=== PATIENT | female | born 1945 | race Caucasian/White ===

== ENCOUNTER → 2017-11-25 08:43 | Outpatient (CLI) | payer MEDICARE, OTHER, SELFPAY ==
[2017-11-25 12:47] LABS: Absolute Lymphocyte Count 1.18 X10^3/ul (0.83-4.51); Basophil# 0.01 X10^3/uL; Basophil% 0.2 % (0-1); Eosinophil# 0.11 X10^3/uL; Eosinophils% 2.3 % (0-5); Hematocrit 34.3 % (37-47); Hemoglobin 11.5 g/dl (12.0-15.0); Lymphocyte # 1.18 X10^3/ul (4.0); Lymphocyte % 24.7 % (19-41); Mean Corp Hgb Conc 33.5 g/gl (32-36); Mean Corpuscular Hgb 30.2 pg (27.0-32.0); Mean Platelet Vol. 9.4 fl (6.2-12.0); Monocyte# 0.52 X10^3/uL; Monocyte% 10.9 % (0-10); Neutrophil # 2.95 X10^3/uL (2.7-7.7); Neutrophil % 61.9 % (47-70); POSITIVE COUNT NO; POSITIVE DIFFERENTIAL NO; POSITIVE MORPHOLOGY NO; Platelet Count 233 K/mm3 (150-450); RBC Distribution Width CV 12.5 % (11.6-14.6); RBC Distribution Width SD 40.9 fl (35.1-43.9); Red Blood Count 3.81 M/mm3 (4.2-5.4); White Blood Count 4.8 K/mm3 (4.4-11.0)
[2017-11-25 13:11] LABS: AST(SGOT) 22 U/L (15-37); Alanine Aminotransfer ALT/SGPT 22 U/L (13-56); Albumin, Serum 3.8 g/dL (3.2-5.0); Alkaline Phosphatase 66 U/L (45-117); Anion Gap 6 (5-15); BUN 18 mg/dL (7-18); BUN/Creat Ratio 16.4 RATIO (10-20); Chloride 103 mmol/L (98-107); EST Glomerular Filtration Rate 52 mL/min (>60); Est Glom Filt Rate - Afr Amer 63 mL/min (>60); Globulin 3.9 g/dL (2.2-4.2); Glucose 157 mg/dL (74-106); Potassium 3.9 mmol/L (3.5-5.1); Protein, Total 7.7 g/dL (6.4-8.2); Sodium Level 139 mmol/L (136-145); Thyroid Stim Hormone (TSH) 1.94 uIU/mL (0.358-3.74)
[2017-11-26 09:01] LABS: Vitamin D,25 Hydroxy 70.7 ng/mL (29.95-100.01)
== END ==
PROVIDERS: Family Provider Family Medicine Geriatric Medicine; PCP Family Medicine Geriatric Medicine; Visit Provider Family Medicine Geriatric Medicine
DX: E11.9 Type 2 diabetes mellitus without complications (principal); E55.9 Vitamin D deficiency, unspecified; I10 Essential (primary) hypertension
CPT/HCPCS: 36415; 80053; 82306; 84443; 85025

== ENCOUNTER → 2017-12-23 15:23 | Outpatient (CLI) | payer MEDICARE, OTHER, SELFPAY ==
--- NOTE | 2017-12-23 15:26 | BI_ITS ---
MAMMOGRAPHY - BILATERAL SCREENING 3-D KIMO SYNTHESIS REASON FOR EXAM: Female, 72 years old. Recent 5 pound weight loss. Right breast biopsy 1989. PERTINENT HISTORY: No significant family history. TECHNIQUE: Digital bilateral breast kimo (3D mammographic acquisition) in the CC and MLO projections. 2-D mediolateral oblique (MLO) and craniocaudad (CC) views of both breasts were obtained. CAD: Full Field Digital Mammography with Computer Added Detection was performed. COMPARISON: 12/17/2015 through 12/12/2013. FINDINGS: The breast composition is composed of scattered fibroglandular density. No significant asymmetric density, architecture distortion, abnormal microcalcification cluster, dominant mass, adenopathy, skin thickening or nipple retraction identified. Coarse benign-appearing calcifications. BI/SCREENING MAMM (CAD), BILAT IMPRESSION: No mammographic signs of malignancy. Routine yearly mammograms recommended. ASSESSMENT CATEGORY: BIRADS Category 2: Benign. A letter regarding these results will be sent to the patient by the facility within 30 days. FOLLOW UP RECOMMENDATION: Yearly follow up mammogram recommended. (A) Negative mammographic results should not deter biopsy as a palpable lesion should be followed on clinical grounds and biopsy performed if clinically persistent for 3 months or increasing size. Approximately 10% of breast cancers are not detected by mammography. A normal mammogram should not delay biopsy of a clinically suspicious abnormality. Electronically Signed: Maxwell Allen, at 22:26 EDT Tel , Service support ,
== END ==
PROVIDERS: Family Provider Family Medicine Geriatric Medicine; PCP Family Medicine Geriatric Medicine; Visit Provider Family Medicine Geriatric Medicine
DX: Z78.0 Asymptomatic menopausal state (principal); Z12.31 Encounter for screening mammogram for malignant neoplasm of breast
CPT/HCPCS: 77063; 77067; 77080

== ENCOUNTER → 2018-05-26 11:27 | Outpatient (CLI) | payer MEDICARE, OTHER, SELFPAY | PROVIDERS: Family Provider Family Medicine Geriatric Medicine; PCP Family Medicine Geriatric Medicine; Visit Provider Family Medicine Geriatric Medicine | DX: E11.9 Type 2 diabetes mellitus without complications (principal); E55.9 Vitamin D deficiency, unspecified; I10 Essential (primary) hypertension ==

== ENCOUNTER → 2018-06-02 14:27 | Outpatient (CLI) | payer MEDICARE, OTHER, SELFPAY ==
[2018-06-02 14:42] LABS: Absolute Lymphocyte Count 2.84 X10^3/ul (0.83-4.51); Absolute Neutrophil Count 8.7 X10^3/uL (2.0-7.7); Basophil# 0.03 X10^3/uL; Basophil% 0.2 % (0-1); Eosinophil# 0.24 X10^3/uL; Eosinophils% 1.9 % (0-5); Hematocrit 38.5 % (37-47); Hemoglobin 12.7 g/dl (12.0-15.0); Lymphocyte # 2.84 X10^3/ul (4.0); Lymphocyte % 22.3 % (19-41); Mean Corpuscular Hgb 29.7 pg (27.0-32.0); Mean Platelet Vol. 9.8 fl (6.2-12.0); Monocyte# 0.95 X10^3/uL; Monocyte% 7.4 % (0-10); Neutrophil # 8.67 X10^3/uL (2.7-7.7); Platelet Count 331 K/mm3 (150-450); RBC Distribution Width CV 12.5 % (11.6-14.6); RBC Distribution Width SD 40.3 fl (35.1-43.9); Red Blood Count 4.28 M/mm3 (4.2-5.4); White Blood Count 12.8 K/mm3 (4.4-11.0)
[2018-06-02 14:43] LABS: POSITIVE COUNT NO; POSITIVE DIFFERENTIAL NO; POSITIVE MORPHOLOGY NO
[2018-06-02 15:07] LABS: Anion Gap 10 (5-15); BUN 27 mg/dL (7-18); BUN/Creat Ratio 17.9 RATIO (10-20); Calcium,Total 9.6 mg/dL (8.5-10.1); Chloride 95 mmol/L (98-107); Creatinine, Serum 1.51 mg/dL (0.55-1.02); EST Glomerular Filtration Rate 36 mL/min (>60); Est Glom Filt Rate - Afr Amer 43 mL/min (>60); Glucose 178 mg/dL (74-106); Potassium 3.5 mmol/L (3.5-5.1); Sodium Level 132 mmol/L (136-145)
--- NOTE | 2018-06-02 16:18 | CT_ITS ---
STUDY: CT ABDOMEN AND PELVIS WITH CONTRAST REASON FOR EXAM: Female, 73 years old. Lower abdominal pain. RADIATION DOSAGE (If Supplied By Facility): CTDIvol = ( 9.75 ) mGy, DLP = ( 435.72 ) mGycm TECHNIQUE: Transaxial images were obtained from the dome of the diaphragm to the symphysis pubis with oral contrast. 75mL ml of Isovue 300 contrast was administered. Sagittal and coronal images were reconstructed. Individualized dose optimization techniques were used for this CT. COMPARISON: 07/23/2014. FINDINGS: There is a stable 5 mm subpleural nodule in the right lower lobe seen on series 2 image 2. There is a stable 3 mm nodule in the right lower lobe on series 2 image 4. Visualized heart is normal. The liver is unremarkable. The gallbladder is unremarkable. The spleen and pancreas are unremarkable. The adrenal glands are normal. The kidneys are unremarkable. No stones or hydronephrosis. The aorta is normal in caliber. 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 There is no free fluid, free air, or organized collection. There is extensive diverticulosis of the descending and sigmoid colon. There is moderate wall thickening of the sigmoid colon with pericolonic stranding. Findings are consistent with acute diverticulitis. There is no free air or organized collection. There is trace free fluid in the pelvis. There is no bowel obstruction. The appendix is normal. Urinary bladder is unremarkable. Normal abdominal wall. There are mild degenerative changes of the lumbar spine. CT/Abdomen/Pelvis WITH Contrast IMPRESSION: 1. Acute uncomplicated diverticulitis. 2. Stable pulmonary nodules in the right lower lobe. Electronically Signed: Ros Deleon MD at 16:57 EST Tel , Service support ,
--- OUTSIDE RECORDS SUMMARY | 2018-08-07 09:32 | XMS RPT_ITS ---
:1945 Author Organization [place] Care Team Providers Name Role Phone KARLA PYLE (DEEPA) Attending Unavailable RADHA, CANDIDO CHI Referring Unavailable NERIS NOYOLA Admitting Unavailable NERIS NOYOLA Attending Unavailable NERIS NOYOLA Referring Unavailable NERIS NOYOLA Admitting Unavailable NERIS NOYOLA Attending Unavailable CIRA BLAIR Admitting Unavailable JEWEL WILL Attending Unavailable CIRA BLAIR Referring Unavailable RADHA, CANDIDO CHI Primary Care Unavailable Dr. Clarke Barbour Admitting Unavailable Dr. Clarke Barbour Attending Unavailable Radha, Candido Chi Attending Unavailable Radha, Candido Chi Primary Care Unavailable Radha, Candido Chi Attending Unavailable Radha, Candido Chi Primary Care Unavailable Radha, Candido Chi Referring Unavailable Radha, Candido Chi Attending Unavailable Radha, Candido Chi Primary Care Unavailable Radha, Candido Chi Attending Unavailable Radha, Candido Chi Primary Care Unavailable PROBLEMS PROBLEMS DATE TYPE CONDITION / CODE ATTENDING STATUS SOURCE 06/02/2018 Unknown R10.9 - Unspecified Radha, Candido Chi Active [place] abdominal pain / Community R10.9(ICD-10) Hospital Repository 03/18/2018 Active Unspecified NERIS NOYOLA Active [place] hemorrhoids / [facility] Other K64.9(ICD-10) [place] Repository 03/29/2018 Active Other acute NERIS NOYOLA Active [place] postprocedural pain [facility] Other / G89.18(ICD-10) [place] Repository 03/24/2018 Active Encounter for NERIS NOYOLA Active [place] screening for [facility] Main malignant neoplasm [place] of colon / Repository Z12.11(ICD-10) 11/25/2017 Unknown E11.9 - Type 2 Radha, Candido Chi Active [place] diabetes mellitus [facility] without Hospital complications / Repository E11.9(ICD-10) 11/25/2017 Unknown E55.9 - Vitamin D Radha, Candido Chi Active [place] deficiency, Community unspecified / Hospital E55.9(ICD-10) Repository 11/25/2017 Unknown I10 - Essential Radha, Candido Chi Active [facility] (primary) Community hypertension / Hospital I10(ICD-10) Repository 07/22/2017 Admitting Chest pain, WILL, Active [facility] diagnosis unspecified / JEWEL ANABELLE Three R07.9(ICD-10) Repository PROCEDURES PROCEDURES No Procedure Records FoundRESULTS RESULTS ABDOMEN/PELVIS WITH Observed: 06/02/2018 Status: F Source: [place] CONTRAST 4:19 PM [facility] REPOSITORY [facility] Imaging Services [address] [place] [address] Abdomen/Pelvis WITH Contrast MR#: [id number] Acct: [id number] Name: MELISA GIMENEZ Rep #: [id number] : 1945 F 73 From: Ros Deleon MD PCP: Candido Garcia MD, Chi Status: REG CLI Study: Abdomen/Pelvis WITH Contrast Date of Exam: 06/02/18 Exam# [id number] Ordering Dr: Candido Garcia MD STUDY: CT ABDOMEN AND PELVIS WITH CONTRAST REASON FOR EXAM: Female, 73 years old. Lower abdominal pain. RADIATION DOSAGE (If Supplied By Facility): CTDIvol = ( 9.75 ) mGy, DLP = ( 435.72 ) mGycm TECHNIQUE: Transaxial images were obtained from the dome of the diaphragm to the symphysis pubis with oral contrast. 75mL ml of Isovue 300 contrast was administered. Sagittal and coronal images were reconstructed. Individualized dose optimization techniques were used for this CT. COMPARISON: 07/23/2014. FINDINGS: There is a stable 5 mm subpleural nodule in the right lower lobe seen on series 2 image 2. There is a stable 3 mm nodule in the right lower lobe on series 2 image 4. Visualized heart is normal. The liver is unremarkable. The gallbladder is unremarkable. The spleen and pancreas are unremarkable. The adrenal glands are normal. The kidneys are unremarkable. No stones or hydronephrosis. The aorta is normal in caliber. 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 There is no free fluid, free air, or organized collection. There is extensive diverticulosis of the descending and sigmoid colon. There is moderate wall thickening of the sigmoid colon with pericolonic stranding. Findings are consistent with acute diverticulitis. There is no free air or organized collection. There is trace free fluid in the pelvis. There is no bowel obstruction. The appendix is normal. Urinary bladder is unremarkable. Normal abdominal wall. There are mild degenerative changes of the lumbar spine. CT/Abdomen/Pelvis WITH Contrast IMPRESSION: 1. Acute uncomplicated diverticulitis. 2. Stable pulmonary nodules in the right lower lobe. Electronically Signed: Ros Deleon MD at 16:57 EST Tel , Service support , CC: Candido Garcia MD Arcade Game Technician: Signed CBC W/DIFF, AUTOMATED Collected: 06/02/2018 Status: F Source: [place] 2:29 PM [facility] REPOSITORY TYPE CODE TESTS RESULT OUT OF RANGE REFERENCE UNITS LAB L100.1000 4.4-11.0 K/mm3 High WBC 12.8 LAB L100.1200 4.2-5.4 M/mm3 Normal RBC 4.28 LAB L100.1300 12.0-15.0 g/dl Normal HGB 12.7 LAB L100.1400 37-47 % Normal HCT 38.5 LAB L100.1500 81-99 fL Normal MCV 90.0 LAB L100.1600 27.0-32.0 pg Normal MCH 29.7 LAB L100.1700 32-36 g/gl Normal MCHC 33.0 LAB L100.1810 11.6-14.6 % Normal RDW CV 12.5 LAB L100.1820 35.1-43.9 fl Normal RDW SD 40.3 LAB L100.1900 150-450 K/mm3 Normal PLT 331 LAB L100.2000 6.2-12.0 fl Normal MPV 9.8 LAB L100.2100 47-70 % Normal NEUT% 68.0 LAB L100.2200 19-41 % Normal LY% 22.3 LAB L100.2300 0-10 % Normal MONO% 7.4 LAB L100.2400 0-5 % Normal EO% 1.9 LAB L100.2500 0-1 % Normal BASO% 0.2 LAB L100.2550 0.0-0.9 % Normal IM GRAN % 0.200 Result Comment: IG% - Immature Granulocytes (promyelocytes, myelocytes and metamyelocytes) > 1% indicates that a LEFT SHIFT is Present. LAB L100.2620 2.0-7.7 X10 3/uL High Absolute Neut 8.7 LAB L100.2720 0.83-4.51 X10 3/ul Normal Absolute Lymph 2.84 Performed By: #### L100.0100 #### [facility] [place], [address] BASIC METABOLIC Collected: 06/02/2018 Status: F Source: [place] PROFILE (BMP) 2:29 PM [facility] REPOSITORY TYPE CODE TESTS RESULT OUT OF RANGE REFERENCE UNITS LAB L501.0100 74-106 mg/dL High GLU 178 Result Comment: Fasting Glucose result greater than or equal to 126 mg/dL suggests DIABETES MELLITUS per A.D.A. criteria. Please note revised GLUCOSE reference range effective 2017. LAB L501.1000 7-18 mg/dL High BUN 27 LAB L501.1100 0.55-1.02 mg/dL High CREAT,SERUM 1.51 Result Comment: The validity of the calculated GFR AND GFRAA in patients over 70 years has not been determined. Clinical correlation is essential. LAB L501.1110 >60 mL/min Low EST GFR 36 Result Comment: Non- GFR Calc LAB L501.1115 >60 mL/min Low EST GFR - AA 43 Result Comment: GFR Calc LAB L501.1300 10-20 RATIO Normal BUN/CRE 17.9 LAB L501.2200 8.5-10.1 mg/dL CA Normal 9.6 LAB L501.5300 136-145 mmol/L Low NA 132 LAB L501.5600 3.5-5.1 mmol/L K Normal 3.5 LAB L501.5900 98-107 mmol/L Low CL 95 LAB L501.6100 21.0-32.0 mmol/L Normal CO2 27.0 LAB L501.6200 5-15 Normal GAP 10 Performed By: #### L500.2500 #### [facility] [address] [address], [address] NURSING PROG Observed: 03/29/2018 Status: COMPLETED Source: [place] 1:00 PM [facility] REPOSITORY HNO ID: [id number] Author: Yajaira (Rn) CASSANDRA Medina Service: Nursing Author Type: Registered Nurse Type: Nursing Progress Note Filed: 03/29/2018 1:04 PM Note Text: Nursing Progress Note Patient Name: Melisa Gimenez Patient Location: LD-OR/LD-OR Daily Note: Discharge instructions given to pt only per pt request. Pt verbalized understanding. No questions or concerns were voiced at this time. Educational materials given to pt regarding antimicrobial resistance and surgical site infection. This note was completed by: Yajaira Medina RN BRIEF OP NOT Observed: 03/29/2018 Status: COMPLETED Source: [place] 11:48 AM [facility] REPOSITORY HNO ID: [id number] Author: Neris Noyola Service: (none) Author Type: Physician Type: Brief Op Note Filed: 03/29/2018 11:50 AM Note Text: BRIEF OPERATIVE NOTE SURGERY DATE: 03/29/2018 Incision/Procedure Start Time: 11:19 Incision Close/Procedure End Time: 11:38 Surgeon(s)/Proceduralist(s) and Medical Observer(s): Dennys welder first class Karla Pyle Procedures: Excision of hemorrhoids, anal fissurectomy Anesthesia: MAC Findings: posterior anal fissure, hemorrhoidal disease Estimated Blood Loss: < 2 mls Specimens: hemorrhoidal tissue Complications: None Preop Diagnosis: hemorrhoidal disease, perianal pain Postop Diagnosis: posterior anal fissure, hemorrhoidal disease SIGNATURE: Neris Noyola MD PATIENT NAME: Melisa Gimenez DATE: March 29, 2018 TIME: 11:48 AM PAGER/CONTACT #: [email or web address] POST Observed: 03/29/2018 Status: COMPLETED Source: [place] 11:02 AM [facility] REPOSITORY HNO ID: [id number] Author: Verna Isbell Service: (none) Author Type: Physician Type: Anesthesia PostOp Filed: 03/29/2018 11:59 AM Note Text: POST ANESTHESIA EVALUATION NOTE SERVICE DATE: 03/29/2018 SERVICE TIME: 11:58 AM : 1945 Vitals: 03/29/18 0947 03/29/18 1149 Temp: 36.4 ?C (97.6 ?F) 36.3 ?C (97.3 ?F) 03/29/18 0947 03/29/18 1149 BP: 159/72 108/52 03/29/18 0947 03/29/18 1149 Pulse: 73 77 03/29/18 0947 03/29/18 1149 Resp: 16 14 03/29/18 0947 03/29/18 1149 SpO2: 98% 96% Validated Vital Signs: Yes POST ANES STATUS: No apparent anesthetic complications. The patient is appropriately hydrated with stable respiratory and cardiovascular status. Patient has safe and adequate airway control. The patient has appropriate pain relief and no significant post operative nausea or vomiting. The patient has achieved baseline mental status. Intra-Operative Events: No Significant Anesthesia Events Further assessment by Anesthesia Service: None Other Remarks: SIGNATURE: Verna Isbell MD PATIENT NAME: Melisa Gimenez DATE: March 29, 2018 TIME: 11:58 AM PAGER/CONTACT #: ANES PREOP Observed: 03/29/2018 Status: COMPLETED Source: [place] 10:50 AM [facility] REPOSITORY O ID: [id number] Author: Verna Isbell Service: (none) Author Type: Physician Type: Anesthesia PreOp Filed: 03/29/2018 10:52 AM Note Text: ANESTHESIOLOGY PREOPERATIVE ASSESSMENT SERVICE DATE: 03/29/2018 : 1945 SERVICE TIME: 10:51 AM Surgeon(s): Neris Noyola Procedure(s) (LRB): HEMORRHOIDECTOMY EXTERNAL > 2 COLUMNS/GROUPS (N/A) Estimated body mass index is 24.33 kg/m? as calculated from the following: Height as of this encounter: 157.5 cm (5' 2). Weight as of this encounter: 60.3 kg (133 lb). MOST RECENT HEMATOCRIT AND POTASSIUM RESULTS: No results found for this basename: HCT,K ANES DOS/PREOP NOTE: Vitals: 03/29/18 0947 BP: 159/72 Pulse: 73 Resp: 16 Temp: 36.4 ?C (97.6 ?F) SpO2: 98% Weight: 60.3 kg (133 lb) Height: 157.5 cm (5' 2) ACTIVE PROBLEM LIST Hemorrhoid PAST MEDICAL HISTORY Diagnosis Date - Diabetes (HCC) - Hypercholesteremia PAST SURGICAL HISTORY Procedure Laterality Date - COLONOSCOP W/ OR W/O BRSH SPEC 03/24/2018 Colonoscopy - HEMORRHOID SURGERY HX 03/29/2018 - HYSTERECTOMY FAMILY HISTORY Problem Relation Age of Onset - Diabetes Father - Heart Father - Diabetes Brother Social History: Social History Substance Use Topics - Smoking status: Never Smoker - Smokeless tobacco: Never Used - Alcohol use No No current facility-administered medications on file prior to encounter. Current Outpatient Prescriptions on File Prior to Encounter: citalopram (CELEXA) 20 mg tablet Take 20 mg by mouth once daily. VITAMIN D 50,000 unit capsule Take 1 capsule by mouth once each week. HUMULIN 70/30 U-100 INSULIN 100 unit/mL (70-30) Inject 15 units sub-q 2 times daily lisinopril-hydrochlorothiazide (PRINZIDE,ZESTORETIC) 20-12.5 mg per tablet Take 2 tablets by mouth once daily. metFORMIN (GLUCOPHAGE) 1,000 mg tablet Take 1,000 mg by mouth twice daily. simvastatin (ZOCOR) 40 mg tablet Take 40 mg by mouth daily at bedtime. Current Facility-Administered Medications: lidocaine 10 mg/mL (1 %) 1-2 mg injection (XYLOCAINE) 0.1- 0.2 mL INTRADERMAL PRN Neris Noyola lactated ringers infusion 5-30 mL/hr INTRAVENOUS CONTINUOUS Neris Noyola Last Rate: 30 mL/hr at 03/29/18 1020 30 mL/hr at 03/29/18 1020 ceFAZolin iv piggyback 2 g in D5W (iso-osmotic) 100 mL (ANCEF) 2 g INTRAVENOUS Pre-Op Once Neris Noyola Last Rate: 200 mL/hr at 03/29/18 1024 2 g at 03/29/18 1024 Allergies: ALLERGIES Allergen Reactions - Sulfa (Sulfonamide * Intolerance REVIEW OF SYSTEMS: REVIEW OF SYSTEMS: As stated in Active Problem List/ Past Medical History ANESTHESIOLOGY REVIEW: Airway Assessment: MP 2; Neck ROM: Full ROM without neurologic symptoms; Airway Evaluation: No significant abnormalities Symptoms of Sleep Apnea: Hypertension and Age over 50 (73 year old) Intubation History: History of general anesthesia with no known difficulty Dentition: Multiple missing teeth Removable partial: lower ADDITIONAL PHYSICAL EXAM: Lungs: Lungs clear to auscultation. Good diaphragmatic excursion. Cardiac: normal S1 and S2; no rubs, no murmurs, and no gallops Additional Pertinent Findings: N/A ADVERSE ANESTHESIA EVENT: No history of adverse event FAMILY HIISTORY OF ANESTHESIA: No known issues BLOOD PRODUCTS: Not anticipated for this procedure OTHER MEDICAL PROBLEMS: None I have interviewed and examined the patient. I have reviewed the medical record and/or the pre-anesthesia evaluation, pertinent labs, and test results. Significant changes in the patient's condition since the History and Physical, not otherwise documented in primary service progress notes: No Anesthetic risks, benefits, alternatives, personnel and consent discussed: Yes ANES REVIEW: This contains information obtained greater than 48 hours prior to the Surgery/Procedure. See Day of Surgery Note SIGNATURE: Verna Isbell MD PATIENT NAME: Melisa Gimenez DATE: March 29, 2018 TIME: 10:50 AM PAGER/CONTACT #: OPERATIVE NO Observed: 03/29/2018 Status: COMPLETED Source: [place] 12:00 AM [facility] REPOSITORY [facility] ID: [id number] Author: Neris Noyola Service: (none) Author Type: Physician Type: Operative Report Filed: 03/30/2018 12:36 PM Note Text: [facility] - Operative Report - MELISA Connolly : 1945 AGE: 73. SEX: F PATIENT TYPE: A [facility] [place]: [facility] LOCATION: [facility] ATTENDING PHYSICIAN: Neris Noyola MD CSN NUMBER: [id number] DATE OF SURGERY/PROCEDURE: 03/29/2018 INCISION/PROCEDURE START TIME: 11:19 AM INCISION CLOSE/PROCEDURE END TIME: 11:38 AM PREOPERATIVE DIAGNOSIS: Painful external hemorrhoids. POSTOPERATIVE DIAGNOSIS: External and internal hemorrhoidal disease and posterior anal fissure. SURGEON: Neris Noyola MD POLICE SHIFT COMMANDER: mortgage loan assistant is Karla Pyle. She is a PA, who is assisting me as there are no surgery residents available. SURGERY/PROCEDURE: Hemorrhoidectomy with anal fissurectomy (44985), anal sphincter dilatation (07191) ANESTHESIA: MAC and local. LOCATION: [facility]. SPECIMEN: Hemorrhoidal tissue. INDICATIONS: Melisa Gimenez is a 73-year-old white female, who presents with painful external hemorrhoids and also recent colonoscopy revealed no other pathology. She, therefore, presents for evaluation with exploration under anesthesia and hemorrhoidectomy. She has been counseled as the risks of procedure including, but not limited to, infection, bleeding, injury to any bowel or bladder, injury to any blood vessels or nerves, nonresolution of symptoms, continue hemorrhoidal disease by nature of disease, wound infection, etc. The patient understands and agrees to proceed. DESCRIPTION OF PROCEDURE: After informed consent was given, the patient was brought to the operating room. Appropriate time-out protocol was done in the preprocedure area as well as in the operating room. The patient was then placed under anesthesia. She was then placed in a modified lithotomy position with appropriate padding to all decubitus areas. The perianal area was then prepped with a sterile surgical Betadine preparation, and the anal canal and rectum were then irrigated with the Betadine dilute solution. Appropriate sterile surgical drapes were placed. The skin and subcutaneous tissues all around the hemorrhoidal tissue was infiltrated with local anesthetic. The patient was noted to have large external hemorrhoids. Examination of the entire anal canal was done with an anal speculum after gentle dilatation of the sphincter muscles. The patient was also noted to have internal hemorrhoidal disease. Examination revealed a posterior anal fissure. The anal fissure tissue had senescent granulation tissue. This was sharply debrided. The edges of the anal fissure was also sharply excised back to normal tissue. Hemostasis was controlled by pressure. There was internal external hemorrhoidal bundle associated with this area. This hemorrhoidal tissue was also excised. The mucosa was then reapproximated over this entire area, radially, using a running locking 3-0 chromic suture. There was also a right lateral hemorrhoidal bundle. This also was incised and the mucosa was reapproximated using a running locking 3-0 chromic suture. The hemostasis had been controlled by electrocautery. The anal sphincter muscle was then gently dilated to four fingerbreadths. Thrombin Gelfoam with lidocaine ointment was then inserted into the anal canal for postoperative comfort. The patient was then brought to the recovery room in stable condition. COMPLICATIONS: None. ESTIMATED BLOOD LOSS: Less than 5 mL. Neris Noyola MD LW:[id number] HISTORY PHYSICAL Observed: 03/28/2018 Status: COMPLETED Source: [place] 6:52 PM [facility] REPOSITORY HNO ID: [id number] Author: Neris Noyola Service: (none) Author Type: Physician Type: HANDP Filed: 03/28/2018 6:53 PM Note Text: HISTORY AND PHYSICAL ? Melisa Gimenez 1945 ? REFERRING PHYSICIAN: Candido Garcia Chi, MD ? CHIEF COMPLAINT: Hemorrhoids ? HPI: The patient is a 73 year old female referred for hemorrhoids. Outside records were not available for review at time of patient appointment. Melisa notes that she has had hemorrhoids for many years but over the last couple of weeks these have become enlarged and increasingly painful. She does note a recent history of some straining with bowel movements. She states she has tried hydrocortisone preparation creams without relief. Has tried sitz baths with mild temporary improvement in symptoms. She denies any blood in stools or prolapsing hemorrhoids. She states her pain is all external and focal, has one larger hemorrhoid that is primary source of discomfort. Was evaluated by PCP, per patient was referred to see if she would be a candidate for banding procedure. The patient notes no history of upper GI complaints. Melisa has undergone prior endoscopy in 2005 and is overdue for screening colonoscopy. She denies a family history of colon issues. ? Patient's past medical history is significant for hypertension and diabetes mellitus. She follows with Dr. Garcia for her chronic medical conditions. She denies any history of cardiac or pulmonary issues. Denies any problems with sedation in the past. ? ? PAST?MEDICAL?HISTORY PAST MEDICAL HISTORY Diagnosis Date - Diabetes (HCC) ? - Hypercholesteremia ? ? ? PAST?SURGICAL?HISTORY PAST SURGICAL HISTORY Procedure Laterality Date - HYSTERECTOMY ? CURRENT?MEDICATIONS ? Current Outpatient Prescriptions: citalopram (CELEXA) 20 mg tablet Take 20 mg by mouth once daily. VITAMIN D 50,000 unit capsule Take 1 capsule by mouth once each week. HUMULIN 70/30 U-100 INSULIN 100 unit/mL (70-30) Inject 15 units sub-q 2 times daily lisinopril-hydrochlorothiazide (PRINZIDE,ZESTORETIC) 20-12.5 mg per tablet Take 2 tablets by mouth once daily. metFORMIN (GLUCOPHAGE) 1,000 mg tablet Take 1,000 mg by mouth twice daily. simvastatin (ZOCOR) 40 mg tablet Take 40 mg by mouth daily at bedtime. ? No current facility-administered medications for this visit. ? ALLERGIES: Sulfa (Sulfonamide Antibiotics) ? PERSONAL HISTORY: SOCIAL?HISTORY Social History Marital status: Spouse name: Years of education: Number of children: ? Social History Main Topics Smoking status: Never Smoker ? Smokeless tobacco: Never Used Alcohol use: No ? FAMILY HISTORY: FAMILY?HISTORY FAMILY HISTORY Problem Relation Age of Onset - Diabetes Father ? - Heart Father ? - Diabetes Brother ? ? ? REVIEW OF SYMPTOMS: The review of systems data was entered by the nurse and reviewed by me ? Nursing Notes: Sabiha Blessing KIM 03/14/2018 9:46 AM Signed REVIEW OF SYSTEMS: General: The patient denies fatigue, denies weight loss, denies weight gain, denies feeling hot, and denies feelings of cold. Eyes: The patient denies glaucoma, denies eye injury/surgery, wears glasses or contacts. Ear/Nose/Throat: The patient denies allergies, denies hayfever, denies ear infections, and denies bloody noses. Cardiovascular: The patient denies chest pain, denies heart disease, NOTES high blood pressure,denies cardiac stent, denies prior heart attack, denies irregular heart beat, denies high cholesterol, denies poor circulation, denies heart failure, other cardiac issues, denies claudication, denies cold feet, denies peripheral arterial stent. Respiratory: The patient denies tuberculosis, denies pneumonia, denies frequent cough, denies pulmonary embolism, denies shortness of breath, and denies coughing up blood. Gastrointestinal: The patient denies difficulty swallowing, denies acid reflux, denies ulcers, denies vomiting, denies jaundice/hepatitis, denies gallbladder problems, denies black or tarry stools, NOTES hemorrhoids, denies bleeding from rectum, denies diverticulitis, denies constipation, denies diarrhea, denies loss of stool control, and denies hernias. Kidney/Bladder: The patient denies kidney stones, denies urine infections, and denies bloody urine. Skin: The patient denies a history of skin cancer, denies bleeding/changing moles, and denies a history of skin rash. Neurologic: The patient denies a history of epilepsy/convulsions, denies headaches, denies head/spinal injuries, and denies stroke/TIA. Psychiatric: The patient denies psychiatric medications, denies depression, and denies voices, denies substance abuse. Endocrine: The patient denies thyroid disorders, NOTES diabetes, and denies hormonal problems. Hematologic: The patient denies a history of bruising, denies bleeding, and denies anemia, denies blood clots. Infections: The patient denies a history of measles and mumps, denies rheumatic fever, and denies sexually transmitted diseases. Musculoskeletal: The patient denies back pain/injury, denies back problems, denies sciatica, denies knee/foot trouble, denies arthritis, or denies gout. ? ? When was patient's last Mammogram screening? 2017 ? Last Colonoscopy: None ? Sabiha Funk LPN I have confirmed and edited as necessary, the PFSH and ROS obtained by others. ? PHYSICAL EXAMINATION: ? General: The patient is 73 year old female, well nourished, well hydrated in no acute distress. The patient is oriented to time, place, and person. ? VITALS: Blood pressure 132/58, pulse 70, weight 60.3 kg (133 lb). There is no height or weight on file to calculate BMI. ? HEENT: Normal cephalic, ataumatic, pupils are equally round, sclera are anicteric, mucous membranes are moist, oropharynx is clear. Neck has no masses, asymmetry or lymphadenopathy. ? Respiratory: Clear to auscultation and percussion. Normal respiratory excursion and pattern. ? Cardiac: Examination is regular rate and rhythm. Normal S1/S2 ? Abdominal exam: Soft, nontender, with no palpable masses. No hepatosplenomegaly. No palpable hernias. ? Rectal exam: +large, tender slightly firm but non-thrombosed external hemorrhoidal bundle at 1 o'clock and smaller external hemorrhoid at 6 o'clock. No fissure noted. RIDGE deferred ? Extremities: no clubbing, cyanosis or edema. No adenopathy. ? Other: ? LABORATORY VALUES: As Noted ? RADIOLOGIC STUDIES: As Noted ? ? Assessment IMPRESSION: symptomatic external hemorrhoid. Need for screening colonoscopy ? PLAN: Dr. Noyola also evaluated the patient and participated in development of the following plan. Dr. Noyola has recommended screening colonoscopy prior to any surgical intervention for hemorrhoids. We have also recommended attempting additional conservative treatments for the hemorrhoids prior to surgery. Discussed that the symptomatic external tag would not benefit from banding, as that is typically used for internal bleeding hemorrhoids. The patient wishes to have the large symptomatic superior external hemorrhoid excised, noting this has not improved with conservative measures. ? Dr. Noyola has offered hemorrhoidectomy of the larger hemorrhoidal bundle to be done in the OR at a separate setting from colonoscopy. We did discuss expectations for significant discomfort and swelling post-hemorrhoidectomy. Patient notes she still wishes to proceed. ? We discussed the risks and benefits of the planned procedures. I have informed the patient that complications can occur with both procedures. The patient had the opportunity to ask questions concerning the planned endoscopy and hemorrhoidectomy. My staff has also explained the procedures to the patient in understandable terms and has given the patient printed material concerning the procedure. The patient freely consents to both endoscopy and hemorrhoidectomy. ? I plan to use golytely bowel preparation in addition to 1 day of clear liquids prior to endoscopy ? Recommend clear liquid diet for 1 day prior to hemorrhoidectomy ? The patient has been instructed to contact her PCP for instructions regarding her diabetic medications which may require adjusment during bowel preparation and the days of the procedures ? I plan for monitored anesthetic care. ? Patient records/most recent HANDP requested from Dr. Garcia's office for review ? Diagnoses: (Z12.11) Encounter for screening for malignant neoplasm of colon (primary encounter diagnosis) (K64.4) External hemorrhoids ? Return to Clinic: The patient is instructed to follow-up with me 1 week post operatively. ? Patient verbalized understanding of all above and agreed with the plan ? Karla Pyle PA-C ? ? NURSING PROG Observed: 03/24/2018 Status: COMPLETED Source: [place] 11:38 AM [facility] REPOSITORY HNO ID: [id number] Author: Tavon Horn RN Service: Nursing Author Type: Registered Nurse Type: Nursing Progress Note Filed: 03/24/2018 11:39 AM Note Text: Patient did not experience a fall prior to discharge. Patient did not experience a burn prior to discharge. Tavon Horn RN NURSING PROG Observed: 03/24/2018 Status: COMPLETED Source: [place] 11:29 AM [facility] REPOSITORY HNO ID: [id number] Author: Tavon Horn RN Service: Nursing Author Type: Registered Nurse Type: Nursing Progress Note Filed: 03/24/2018 11:31 AM Note Text: Dressing to go home, reviewed instructions and results with her as she is more awake. All safety maintained. PT ED Observed: 03/24/2018 Status: COMPLETED Source: [place] 11:29 AM [facility] REPOSITORY HNO ID: [id number] Author: Tavon MaldonadoRn) CASSANDRA Horn Service: Nursing Author Type: Registered Nurse Type: Patient Education Filed: 03/24/2018 11:29 AM Note Text: POST OP LEARNING RESPONSE INSTRUCTION PROVIDED TO: Patient METHOD OF INSTRUCTION: Individual instruction Written instruction - handouts Verbal instruction PATIENT / FAMILY RESPONSE: Information received as demonstrated by interest and questions FOLLOW-UP PLAN: Patient instructed to call with any further issues SUPPLEMENTAL MATERIAL: None REFERRAL (RECOMMENDATION): None Electronically Signed By: Tavon Horn RN In Department: AMBULATORY SURGERY NURSING PROG Observed: 03/24/2018 Status: COMPLETED Source: [place] 11:10 AM [facility] REPOSITORY HNO ID: [id number] Author: Tavon MaldonadoRn) CASSANDRA Horn Service: Nursing Author Type: Registered Nurse Type: Nursing Progress Note Filed: 03/24/2018 11:11 AM Note Text: Dr noyola to speak to patient, starting to tolerating snack. I will go over instructions and results with her again before she leaves as she has no one to speak to as son is just a ride. NURSING PROG Observed: 03/24/2018 Status: COMPLETED Source: [place] 10:55 AM [facility] REPOSITORY HNO ID: [id number] Author: Tavon MaldonadoRn) Justina RN Service: Nursing Author Type: Registered Nurse Type: Nursing Progress Note Filed: 03/24/2018 10:56 AM Note Text: Resting left side, blood sugar 162. No complaints, all safety maintained. NURSING PROG Observed: 03/24/2018 Status: COMPLETED Source: [place] 10:38 AM [facility] REPOSITORY HNO ID: [id number] Author: Tavon Kan) CASSANDRA Horn Service: Nursing Author Type: Registered Nurse Type: Nursing Progress Note Filed: 03/24/2018 10:41 AM Note Text: Pt into Endo recovery room in satisfactory condition. Resting on left side. Pt. sleepy but arousable. Abdomen soft, no complaints, all safety maintained. Will continue to monitor. NURSING PROG Observed: 03/24/2018 Status: COMPLETED Source: [place] 10:36 AM [facility] REPOSITORY HNO ID: [id number] Author: Kylee Wallace RN Service: Nursing Author Type: Registered Nurse Type: Nursing Progress Note Filed: 03/24/2018 10:36 AM Note Text: Patient did not experience a fall within the Intraoperative area. Patient did not experience a burn within the Intraoperative area. Kylee Wallace RN NURSING PROG Observed: 03/24/2018 Status: COMPLETED Source: [place] 10:05 AM [facility] REPOSITORY HNO ID: [id number] Author: Tavon MaldonadoRn) CASSANDRA Horn Service: Nursing Author Type: Registered Nurse Type: Nursing Progress Note Filed: 03/24/2018 10:06 AM Note Text: [facility] PRE-OP NURSING HAND OFF NOTE SBAR Hand off given to Kylee Wallace RN. Hand off was communicated verbally and at the patient's bedside and all questions were answered. FALLS/LOPEZ Patient did not experience a fall within the Preoperative area. Patient did not experience a burn within the Preoperative area. Tavon Horn RN PT ED Observed: 03/24/2018 Status: COMPLETED Source: [place] 9:50 AM [facility] REPOSITORY HNO ID: [id number] Author: Tavon Kan) CASSANDRA Horn Service: Nursing Author Type: Registered Nurse Type: Patient Education Filed: 03/24/2018 9:50 AM Note Text: PRE OP LEARNING ASSESSMENT PROCEDURE/SURGERY: GI PROCEDURES: Colonoscopy READINESS TO LEARN COGNITIVE ABILITY: Alert and oriented MOTIVATION TO LEARN: Eager Interested FAMILY SUPPORT: None - Unavailable/disinterested PATIENT LEARNS BEST BY: Individual Instruction Written Instruction - Hand-outs Verbal Instruction FACTORS AFFECTING LEARNING: None PHYSICAL LIMITATIONS AFFECTING LEARNING: None Electronically Signed By: Tavon Horn RN In Department: AMBULATORY SURGERY HISTORY PHYSICAL Observed: 03/23/2018 Status: COMPLETED Source: [place] 7:10 PM [facility] REPOSITORY HNO ID: [id number] Author: Neris Noyola Service: (none) Author Type: Physician Type: HANDP Filed: 03/23/2018 7:11 PM Note Text: HISTORY AND PHYSICAL ? Melisa Gimenez 1945 ? REFERRING PHYSICIAN: Candido Garcia Chi, MD ? CHIEF COMPLAINT: Hemorrhoids ? HPI: The patient is a 73 year old female referred for hemorrhoids. Outside records were not available for review at time of patient appointment. Melisa notes that she has had hemorrhoids for many years but over the last couple of weeks these have become enlarged and increasingly painful. She does note a recent history of some straining with bowel movements. She states she has tried hydrocortisone preparation creams without relief. Has tried sitz baths with mild temporary improvement in symptoms. She denies any blood in stools or prolapsing hemorrhoids. She states her pain is all external and focal, has one larger hemorrhoid that is primary source of discomfort. Was evaluated by PCP, per patient was referred to see if she would be a candidate for banding procedure. The patient notes no history of upper GI complaints. Melisa has undergone prior endoscopy in 2005 and is overdue for screening colonoscopy. She denies a family history of colon issues. ? Patient's past medical history is significant for hypertension and diabetes mellitus. She follows with Dr. Garcia for her chronic medical conditions. She denies any history of cardiac or pulmonary issues. Denies any problems with sedation in the past. ? ? PAST?MEDICAL?HISTORY PAST MEDICAL HISTORY Diagnosis Date - Diabetes (HCC) ? - Hypercholesteremia ? ? ? PAST?SURGICAL?HISTORY PAST SURGICAL HISTORY Procedure Laterality Date - HYSTERECTOMY ? CURRENT?MEDICATIONS ? Current Outpatient Prescriptions: citalopram (CELEXA) 20 mg tablet Take 20 mg by mouth once daily. VITAMIN D 50,000 unit capsule Take 1 capsule by mouth once each week. HUMULIN 70/30 U-100 INSULIN 100 unit/mL (70-30) Inject 15 units sub-q 2 times daily lisinopril-hydrochlorothiazide (PRINZIDE,ZESTORETIC) 20-12.5 mg per tablet Take 2 tablets by mouth once daily. metFORMIN (GLUCOPHAGE) 1,000 mg tablet Take 1,000 mg by mouth twice daily. simvastatin (ZOCOR) 40 mg tablet Take 40 mg by mouth daily at bedtime. ? No current facility-administered medications for this visit. ? ALLERGIES: Sulfa (Sulfonamide Antibiotics) ? PERSONAL HISTORY: SOCIAL?HISTORY Social History Marital status: Spouse name: Years of education: Number of children: ? Social History Main Topics Smoking status: Never Smoker ? Smokeless tobacco: Never Used Alcohol use: No ? FAMILY HISTORY: FAMILY?HISTORY FAMILY HISTORY Problem Relation Age of Onset - Diabetes Father ? - Heart Father ? - Diabetes Brother ? ? ? REVIEW OF SYMPTOMS: The review of systems data was entered by the nurse and reviewed by me ? Nursing Notes: Sabiha Blessing KIM 03/14/2018 9:46 AM Signed REVIEW OF SYSTEMS: General: The patient denies fatigue, denies weight loss, denies weight gain, denies feeling hot, and denies feelings of cold. Eyes: The patient denies glaucoma, denies eye injury/surgery, wears glasses or contacts. Ear/Nose/Throat: The patient denies allergies, denies hayfever, denies ear infections, and denies bloody noses. Cardiovascular: The patient denies chest pain, denies heart disease, NOTES high blood pressure,denies cardiac stent, denies prior heart attack, denies irregular heart beat, denies high cholesterol, denies poor circulation, denies heart failure, other cardiac issues, denies claudication, denies cold feet, denies peripheral arterial stent. Respiratory: The patient denies tuberculosis, denies pneumonia, denies frequent cough, denies pulmonary embolism, denies shortness of breath, and denies coughing up blood. Gastrointestinal: The patient denies difficulty swallowing, denies acid reflux, denies ulcers, denies vomiting, denies jaundice/hepatitis, denies gallbladder problems, denies black or tarry stools, NOTES hemorrhoids, denies bleeding from rectum, denies diverticulitis, denies constipation, denies diarrhea, denies loss of stool control, and denies hernias. Kidney/Bladder: The patient denies kidney stones, denies urine infections, and denies bloody urine. Skin: The patient denies a history of skin cancer, denies bleeding/changing moles, and denies a history of skin rash. Neurologic: The patient denies a history of epilepsy/convulsions, denies headaches, denies head/spinal injuries, and denies stroke/TIA. Psychiatric: The patient denies psychiatric medications, denies depression, and denies voices, denies substance abuse. Endocrine: The patient denies thyroid disorders, NOTES diabetes, and denies hormonal problems. Hematologic: The patient denies a history of bruising, denies bleeding, and denies anemia, denies blood clots. Infections: The patient denies a history of measles and mumps, denies rheumatic fever, and denies sexually transmitted diseases. Musculoskeletal: The patient denies back pain/injury, denies back problems, denies sciatica, denies knee/foot trouble, denies arthritis, or denies gout. ? ? When was patient's last Mammogram screening? 2017 ? Last Colonoscopy: None ? Sabiha Funk LPN I have confirmed and edited as necessary, the PFSH and ROS obtained by others. ? PHYSICAL EXAMINATION: ? General: The patient is 73 year old female, well nourished, well hydrated in no acute distress. The patient is oriented to time, place, and person. ? VITALS: Blood pressure 132/58, pulse 70, weight 60.3 kg (133 lb). There is no height or weight on file to calculate BMI. ? HEENT: Normal cephalic, ataumatic, pupils are equally round, sclera are anicteric, mucous membranes are moist, oropharynx is clear. Neck has no masses, asymmetry or lymphadenopathy. ? Respiratory: Clear to auscultation and percussion. Normal respiratory excursion and pattern. ? Cardiac: Examination is regular rate and rhythm. Normal S1/S2 ? Abdominal exam: Soft, nontender, with no palpable masses. No hepatosplenomegaly. No palpable hernias. ? Rectal exam: +large, tender slightly firm but non-thrombosed external hemorrhoidal bundle at 1 o'clock and smaller external hemorrhoid at 6 o'clock. No fissure noted. RIDGE deferred ? Extremities: no clubbing, cyanosis or edema. No adenopathy. ? Other: ? LABORATORY VALUES: As Noted ? RADIOLOGIC STUDIES: As Noted ? ? Assessment IMPRESSION: symptomatic external hemorrhoid. Need for screening colonoscopy ? PLAN: Dr. Noyola also evaluated the patient and participated in development of the following plan. Dr. Noyola has recommended screening colonoscopy prior to any surgical intervention for hemorrhoids. We have also recommended attempting additional conservative treatments for the hemorrhoids prior to surgery. Discussed that the symptomatic external tag would not benefit from banding, as that is typically used for internal bleeding hemorrhoids. The patient wishes to have the large symptomatic superior external hemorrhoid excised, noting this has not improved with conservative measures. ? Dr. Noyola has offered hemorrhoidectomy of the larger hemorrhoidal bundle to be done in the OR at a separate setting from colonoscopy. We did discuss expectations for significant discomfort and swelling post-hemorrhoidectomy. Patient notes she still wishes to proceed. ? We discussed the risks and benefits of the planned procedures. I have informed the patient that complications can occur with both procedures. The patient had the opportunity to ask questions concerning the planned endoscopy and hemorrhoidectomy. My staff has also explained the procedures to the patient in understandable terms and has given the patient printed material concerning the procedure. The patient freely consents to both endoscopy and hemorrhoidectomy. ? I plan to use golytely bowel preparation in addition to 1 day of clear liquids prior to endoscopy ? Recommend clear liquid diet for 1 day prior to hemorrhoidectomy ? The patient has been instructed to contact her PCP for instructions regarding her diabetic medications which may require adjusment during bowel preparation and the days of the procedures ? I plan for monitored anesthetic care. ? Patient records/most recent HANDP requested from Dr. Garcia's office for review ? Diagnoses: (Z12.11) Encounter for screening for malignant neoplasm of colon (primary encounter diagnosis) (K64.4) External hemorrhoids ? My findings have been communicated to Dr. Garcia via shared medical record. This note will be forwarded to Dr. Candido Garcia MD. Return to Clinic: The patient is instructed to follow-up with me 1 week post operatively. ? Patient verbalized understanding of all above and agreed with the plan ? Karla Pyle PA-C ? ? HOSP Observed: 03/18/2018 Status: COMPLETED Source: [place] 12:00 AM [facility] REPOSITORY Patient:Melisa Gimenez MRN: <[id number]> Height:5' 2(1.575 m) Weight:133 lb (60.328 kg) Outpatient Medications as of 03/29/18: citalopram (CELEXA) 20 mg tablet VITAMIN D 50,000 unit capsule HUMULIN 70/30 U-100 INSULIN 100 unit/mL (70-30) lisinopril-hydrochlorothiazide (PRINZIDE,ZESTORETIC) 20-12.5 mg per tablet metFORMIN (GLUCOPHAGE) 1,000 mg tablet simvastatin (ZOCOR) 40 mg tablet Admission/Clinic Administered Medications as of 03/29/18: lidocaine 10 mg/mL (1 %) 1-2 mg injection (XYLOCAINE) lactated ringers infusion Problem List: Hemorrhoid [K64.9] Allergies: Sulfa (Sulfonamide Antibiotics) Date Verified: 03/29/18 Lab Values No results within the last 30 days for the following basenames: K,HCT Progress Notes ([facility]): Kumarrichardson Mcclain 03/14/2018 1:00 PM Signed 03-24-2018 Colon ASC, 03-29-2018 Hemorrhoidectomy [place] Kumar Mcclain Progress Notes ([facility]): Sabiha Funk LPN 03/14/2018 9:46 AM Signed REVIEW OF SYSTEMS: General: The patient denies fatigue, denies weight loss, denies weight gain, denies feeling hot, and denies feelings of cold. Eyes: The patient denies glaucoma, denies eye injury/surgery, wears glasses or contacts. Ear/Nose/Throat: The patient denies allergies, denies hayfever, denies ear infections, and denies bloody noses. Cardiovascular: The patient denies chest pain, denies heart disease, NOTES high blood pressure,denies cardiac stent, denies prior heart attack, denies irregular heart beat, denies high cholesterol, denies poor circulation, denies heart failure, other cardiac issues, denies claudication, denies cold feet, denies peripheral arterial stent. Respiratory: The patient denies tuberculosis, denies pneumonia, denies frequent cough, denies pulmonary embolism, denies shortness of breath, and denies coughing up blood. Gastrointestinal: The patient denies difficulty swallowing, denies acid reflux, denies ulcers, denies vomiting, denies jaundice/hepatitis, denies gallbladder problems, denies black or tarry stools, NOTES hemorrhoids, denies bleeding from rectum, denies diverticulitis, denies constipation, denies diarrhea, denies loss of stool control, and denies hernias. Kidney/Bladder: The patient denies kidney stones, denies urine infections, and denies bloody urine. Skin: The patient denies a history of skin cancer, denies bleeding/changing moles, and denies a history of skin rash. Neurologic: The patient denies a history of epilepsy/convulsions, denies headaches, denies head/spinal injuries, and denies stroke/TIA. Psychiatric: The patient denies psychiatric medications, denies depression, and denies voices, denies substance abuse. Endocrine: The patient denies thyroid disorders, NOTES diabetes, and denies hormonal problems. Hematologic: The patient denies a history of bruising, denies bleeding, and denies anemia, denies blood clots. Infections: The patient denies a history of measles and mumps, denies rheumatic fever, and denies sexually transmitted diseases. Musculoskeletal: The patient denies back pain/injury, denies back problems, denies sciatica, denies knee/foot trouble, denies arthritis, or denies gout. When was patient's last Mammogram screening? 2017 Last Colonoscopy: None Sabiha Pyle PA-C 03/17/2018 4:41 PM Signed HISTORY AND PHYSICAL Melisa Anthonyer 1945 REFERRING PHYSICIAN: Candido Garcia Chi, MD CHIEF COMPLAINT: Hemorrhoids HPI: The patient is a 73 year old female referred for hemorrhoids. Outside records were not available for review at time of patient appointment. Melisa notes that she has had hemorrhoids for many years but over the last couple of weeks these have become enlarged and increasingly painful. She does note a recent history of some straining with bowel movements. She states she has tried hydrocortisone preparation creams without relief. Has tried sitz baths with mild temporary improvement in symptoms. She denies any blood in stools or prolapsing hemorrhoids. She states her pain is all external and focal, has one larger hemorrhoid that is primary source of discomfort. Was evaluated by PCP, per patient was referred to see if she would be a candidate for banding procedure. The patient notes no history of upper GI complaints. Melisa has undergone prior endoscopy in 2005 and is overdue for screening colonoscopy. She denies a family history of colon issues. Patient's past medical history is significant for hypertension and diabetes mellitus. She follows with Dr. Garcia for her chronic medical conditions. She denies any history of cardiac or pulmonary issues. Denies any problems with sedation in the past. PAST MEDICAL HISTORY Diagnosis Date - Diabetes (HCC) - Hypercholesteremia PAST SURGICAL HISTORY Procedure Laterality Date - HYSTERECTOMY Current Outpatient Prescriptions: citalopram (CELEXA) 20 mg tablet Take 20 mg by mouth once daily. VITAMIN D 50,000 unit capsule Take 1 capsule by mouth once each week. HUMULIN 70/30 U-100 INSULIN 100 unit/mL (70-30) Inject 15 units sub-q 2 times daily lisinopril-hydrochlorothiazide (PRINZIDE,ZESTORETIC) 20-12.5 mg per tablet Take 2 tablets by mouth once daily. metFORMIN (GLUCOPHAGE) 1,000 mg tablet Take 1,000 mg by mouth twice daily. simvastatin (ZOCOR) 40 mg tablet Take 40 mg by mouth daily at bedtime. No current facility-administered medications for this visit. ALLERGIES: Sulfa (Sulfonamide Antibiotics) PERSONAL HISTORY: Social History Marital status: Spouse name: Years of education: Number of children: Social History Main Topics Smoking status: Never Smoker Smokeless tobacco: Never Used Alcohol use: No FAMILY HISTORY: FAMILY HISTORY Problem Relation Age of Onset - Diabetes Father - Heart Father - Diabetes Brother REVIEW OF SYMPTOMS: The review of systems data was entered by the nurse and reviewed by me Nursing Notes: Sabiha Funk LPN 03/14/2018 9:46 AM Signed REVIEW OF SYSTEMS: General: The patient denies fatigue, denies weight loss, denies weight gain, denies feeling hot, and denies feelings of cold. Eyes: The patient denies glaucoma, denies eye injury/surgery, wears glasses or contacts. Ear/Nose/Throat: The patient denies allergies, denies hayfever, denies ear infections, and denies bloody noses. Cardiovascular: The patient denies chest pain, denies heart disease, NOTES high blood pressure,denies cardiac stent, denies prior heart attack, denies irregular heart beat, denies high cholesterol, denies poor circulation, denies heart failure, other cardiac issues, denies claudication, denies cold feet, denies peripheral arterial stent. Respiratory: The patient denies tuberculosis, denies pneumonia, denies frequent cough, denies pulmonary embolism, denies shortness of breath, and denies coughing up blood. Gastrointestinal: The patient denies difficulty swallowing, denies acid reflux, denies ulcers, denies vomiting, denies jaundice/hepatitis, denies gallbladder problems, denies black or tarry stools, NOTES hemorrhoids, denies bleeding from rectum, denies diverticulitis, denies constipation, denies diarrhea, denies loss of stool control, and denies hernias. Kidney/Bladder: The patient denies kidney stones, denies urine infections, and denies bloody urine. Skin: The patient denies a history of skin cancer, denies bleeding/changing moles, and denies a history of skin rash. Neurologic: The patient denies a history of epilepsy/convulsions, denies headaches, denies head/spinal injuries, and denies stroke/TIA. Psychiatric: The patient denies psychiatric medications, denies depression, and denies voices, denies substance abuse. Endocrine: The patient denies thyroid disorders, NOTES diabetes, and denies hormonal problems. Hematologic: The patient denies a history of bruising, denies bleeding, and denies anemia, denies blood clots. Infections: The patient denies a history of measles and mumps, denies rheumatic fever, and denies sexually transmitted diseases. Musculoskeletal: The patient denies back pain/injury, denies back problems, denies sciatica, denies knee/foot trouble, denies arthritis, or denies gout. When was patient's last Mammogram screening? 2017 Last Colonoscopy: None Sabiha Funk LPN I have confirmed and edited as necessary, the PFSH and ROS obtained by others. PHYSICAL EXAMINATION: General: The patient is 73 year old female, well nourished, well hydrated in no acute distress. The patient is oriented to time, place, and person. VITALS: Blood pressure 132/58, pulse 70, weight 60.3 kg (133 lb). There is no height or weight on file to calculate BMI. HEENT: Normal cephalic, ataumatic, pupils are equally round, sclera are anicteric, mucous membranes are moist, oropharynx is clear. Neck has no masses, asymmetry or lymphadenopathy. Respiratory: Clear to auscultation and percussion. Normal respiratory excursion and pattern. Cardiac: Examination is regular rate and rhythm. Normal S1/S2 Abdominal exam: Soft, nontender, with no palpable masses. No hepatosplenomegaly. No palpable hernias. Rectal exam: +large, tender slightly firm but non-thrombosed external hemorrhoidal bundle at 1 o'clock and smaller external hemorrhoid at 6 o'clock. No fissure noted. RIDGE deferred Extremities: no clubbing, cyanosis or edema. No adenopathy. Other: LABORATORY VALUES: As Noted RADIOLOGIC STUDIES: As Noted Assessment IMPRESSION: symptomatic external hemorrhoid. Need for screening colonoscopy PLAN: Dr. Noyola also evaluated the patient and participated in development of the following plan. Dr. Noyola has recommended screening colonoscopy prior to any surgical intervention for hemorrhoids. We have also recommended attempting additional conservative treatments for the hemorrhoids prior to surgery. Discussed that the symptomatic external tag would not benefit from banding, as that is typically used for internal bleeding hemorrhoids. The patient wishes to have the large symptomatic superior external hemorrhoid excised, noting this has not improved with conservative measures. Dr. Noyola has offered hemorrhoidectomy of the larger hemorrhoidal bundle to be done in the OR at a separate setting from colonoscopy. We did discuss expectations for significant discomfort and swelling post-hemorrhoidectomy. Patient notes she still wishes to proceed. We discussed the risks and benefits of the planned procedures. I have informed the patient that complications can occur with both procedures. The patient had the opportunity to ask questions concerning the planned endoscopy and hemorrhoidectomy. My staff has also explained the procedures to the patient in understandable terms and has given the patient printed material concerning the procedure. The patient freely consents to both endoscopy and hemorrhoidectomy. I plan to use golytely bowel preparation in addition to 1 day of clear liquids prior to endoscopy Recommend clear liquid diet for 1 day prior to hemorrhoidectomy The patient has been instructed to contact her PCP for instructions regarding her diabetic medications which may require adjusment during bowel preparation and the days of the procedures I plan for monitored anesthetic care. Patient records/most recent HANDP requested from Dr. Garcia's office for review Diagnoses: (Z12.11) Encounter for screening for malignant neoplasm of colon (primary encounter diagnosis) (K64.4) External hemorrhoids My findings have been communicated to Dr. Garcia via shared medical record. This note will be forwarded to Dr. Candido Garcia MD. Return to Clinic: The patient is instructed to follow-up with me 1 week post operatively. Patient verbalized understanding of all above and agreed with the plan ERIC Lake PA-C 03/14/2018 10:42 AM Signed Plan for colonoscopy with Dr. Noyola. Please contact Dr. Garcia for instructions regarding your diabetic medications for the bowel prep and procedure days. You may take your blood pressure medication with a small sip of water Recommend sitz baths, topical dibucaine ointment (available over the counter) for hemorrhoids. Recommend starting a daily fiber supplement and plenty of fluids. Plan for hemorrhoidectomy if symptoms do not resolve with conservative measures PROGRESS Observed: 03/14/2018 Status: COMPLETED Source: [place] 10:30 AM [facility] [place] REPOSITORY [facility] ID: [id number] Author: Karla Pyle ([place]) Service: (none) Author Type: Physician Medical Observer Type: Progress Notes Filed: 03/17/2018 4:41 PM Note Text: HISTORY AND PHYSICAL Melisa Gimenez 1945 REFERRING PHYSICIAN: Candido Garcia Chi, MD CHIEF COMPLAINT: Hemorrhoids HPI: The patient is a 73 year old female referred for hemorrhoids. Outside records were not available for review at time of patient appointment. Melisa notes that she has had hemorrhoids for many years but over the last couple of weeks these have become enlarged and increasingly painful. She does note a recent history of some straining with bowel movements. She states she has tried hydrocortisone preparation creams without relief. Has tried sitz baths with mild temporary improvement in symptoms. She denies any blood in stools or prolapsing hemorrhoids. She states her pain is all external and focal, has one larger hemorrhoid that is primary source of discomfort. Was evaluated by PCP, per patient was referred to see if she would be a candidate for banding procedure. The patient notes no history of upper GI complaints. Melisa has undergone prior endoscopy in 2005 and is overdue for screening colonoscopy. She denies a family history of colon issues. Patient's past medical history is significant for hypertension and diabetes mellitus. She follows with Dr. Garcia for her chronic medical conditions. She denies any history of cardiac or pulmonary issues. Denies any problems with sedation in the past. PAST MEDICAL HISTORY Diagnosis Date - Diabetes (HCC) - Hypercholesteremia PAST SURGICAL HISTORY Procedure Laterality Date - HYSTERECTOMY Current Outpatient Prescriptions: citalopram (CELEXA) 20 mg tablet Take 20 mg by mouth once daily. VITAMIN D 50,000 unit capsule Take 1 capsule by mouth once each week. HUMULIN 70/30 U-100 INSULIN 100 unit/mL (70-30) Inject 15 units sub-q 2 times daily lisinopril-hydrochlorothiazide (PRINZIDE,ZESTORETIC) 20-12.5 mg per tablet Take 2 tablets by mouth once daily. metFORMIN (GLUCOPHAGE) 1,000 mg tablet Take 1,000 mg by mouth twice daily. simvastatin (ZOCOR) 40 mg tablet Take 40 mg by mouth daily at bedtime. No current facility-administered medications for this visit. ALLERGIES: Sulfa (Sulfonamide Antibiotics) PERSONAL HISTORY: Social History Marital status: Spouse name: Years of education: Number of children: Social History Main Topics Smoking status: Never Smoker Smokeless tobacco: Never Used Alcohol use: No FAMILY HISTORY: FAMILY HISTORY Problem Relation Age of Onset - Diabetes Father - Heart Father - Diabetes Brother REVIEW OF SYMPTOMS: The review of systems data was entered by the nurse and reviewed by nd Nursing Notes: Sabiha Funk LPN 03/14/2018 9:46 AM Signed REVIEW OF SYSTEMS: General: The patient denies fatigue, denies weight loss, denies weight gain, denies feeling hot, and denies feelings of cold. Eyes: The patient denies glaucoma, denies eye injury/surgery, wears glasses or contacts. Ear/Nose/Throat: The patient denies allergies, denies hayfever, denies ear infections, and denies bloody noses. Cardiovascular: The patient denies chest pain, denies heart disease, NOTES high blood pressure,denies cardiac stent, denies prior heart attack, denies irregular heart beat, denies high cholesterol, denies poor circulation, denies heart failure, other cardiac issues, denies claudication, denies cold feet, denies peripheral arterial stent. Respiratory: The patient denies tuberculosis, denies pneumonia, denies frequent cough, denies pulmonary embolism, denies shortness of breath, and denies coughing up blood. Gastrointestinal: The patient denies difficulty swallowing, denies acid reflux, denies ulcers, denies vomiting, denies jaundice/hepatitis, denies gallbladder problems, denies black or tarry stools, NOTES hemorrhoids, denies bleeding from rectum, denies diverticulitis, denies constipation, denies diarrhea, denies loss of stool control, and denies hernias. Kidney/Bladder: The patient denies kidney stones, denies urine infections, and denies bloody urine. Skin: The patient denies a history of skin cancer, denies bleeding/changing moles, and denies a history of skin rash. Neurologic: The patient denies a history of epilepsy/convulsions, denies headaches, denies head/spinal injuries, and denies stroke/TIA. Psychiatric: The patient denies psychiatric medications, denies depression, and denies voices, denies substance abuse. Endocrine: The patient denies thyroid disorders, NOTES diabetes, and denies hormonal problems. Hematologic: The patient denies a history of bruising, denies bleeding, and denies anemia, denies blood clots. Infections: The patient denies a history of measles and mumps, denies rheumatic fever, and denies sexually transmitted diseases. Musculoskeletal: The patient denies back pain/injury, denies back problems, denies sciatica, denies knee/foot trouble, denies arthritis, or denies gout. When was patient's last Mammogram screening? 2017 Last Colonoscopy: None Sabiha Funk LPN I have confirmed and edited as necessary, the PFSH and ROS obtained by others. PHYSICAL EXAMINATION: General: The patient is 73 year old female, well nourished, well hydrated in no acute distress. The patient is oriented to time, place, and person. VITALS: Blood pressure 132/58, pulse 70, weight 60.3 kg (133 lb). There is no height or weight on file to calculate BMI. HEENT: Normal cephalic, ataumatic, pupils are equally round, sclera are anicteric, mucous membranes are moist, oropharynx is clear. Neck has no masses, asymmetry or lymphadenopathy. Respiratory: Clear to auscultation and percussion. Normal respiratory excursion and pattern. Cardiac: Examination is regular rate and rhythm. Normal S1/S2 Abdominal exam: Soft, nontender, with no palpable masses. No hepatosplenomegaly. No palpable hernias. Rectal exam: +large, tender slightly firm but non-thrombosed external hemorrhoidal bundle at 1 o'clock and smaller external hemorrhoid at 6 o'clock. No fissure noted. RIDGE deferred Extremities: no clubbing, cyanosis or edema. No adenopathy. Other: LABORATORY VALUES: As Noted RADIOLOGIC STUDIES: As Noted Assessment IMPRESSION: symptomatic external hemorrhoid. Need for screening colonoscopy PLAN: Dr. Noyola also evaluated the patient and participated in development of the following plan. Dr. Noyola has recommended screening colonoscopy prior to any surgical intervention for hemorrhoids. We have also recommended attempting additional conservative treatments for the hemorrhoids prior to surgery. Discussed that the symptomatic external tag would not benefit from banding, as that is typically used for internal bleeding hemorrhoids. The patient wishes to have the large symptomatic superior external hemorrhoid excised, noting this has not improved with conservative measures. Dr. Noyola has offered hemorrhoidectomy of the larger hemorrhoidal bundle to be done in the OR at a separate setting from colonoscopy. We did discuss expectations for significant discomfort and swelling post-hemorrhoidectomy. Patient notes she still wishes to proceed. We discussed the risks and benefits of the planned procedures. I have informed the patient that complications can occur with both procedures. The patient had the opportunity to ask questions concerning the planned endoscopy and hemorrhoidectomy. My staff has also explained the procedures to the patient in understandable terms and has given the patient printed material concerning the procedure. The patient freely consents to both endoscopy and hemorrhoidectomy. I plan to use golytely bowel preparation in addition to 1 day of clear liquids prior to endoscopy Recommend clear liquid diet for 1 day prior to hemorrhoidectomy The patient has been instructed to contact her PCP for instructions regarding her diabetic medications which may require adjusment during bowel preparation and the days of the procedures I plan for monitored anesthetic care. Patient records/most recent HANDP requested from Dr. Garcia's office for review Diagnoses: (Z12.11) Encounter for screening for malignant neoplasm of colon (primary encounter diagnosis) (K64.4) External hemorrhoids My findings have been communicated to Dr. Garcia via shared medical record. This note will be forwarded to Dr. Candido Garcia MD. Return to Clinic: The patient is instructed to follow-up with me 1 week post operatively. Patient verbalized understanding of all above and agreed with the plan ERIC Lake Observed: 03/14/2018 Status: COMPLETED Source: [place] 9:30 AM [facility] REPOSITORY Office Visit (GENSWS) MELISA GIMENEZ ([id number]) 1945 F Date Time Provider Department 10/29/18 9:30 AM KARLA PYLE ([place]) During your visit today, we recorded the following information about you: Pulse Blood pressure Weight 70/minute 132/58 60.3 kg Sabiha Funk LPN 03/14/2018 9:46 AM Signed REVIEW OF SYSTEMS: General: The patient denies fatigue, denies weight loss, denies weight gain, denies feeling hot, and denies feelings of cold. Eyes: The patient denies glaucoma, denies eye injury/surgery, wears glasses or contacts. Ear/Nose/Throat: The patient denies allergies, denies hayfever, denies ear infections, and denies bloody noses. Cardiovascular: The patient denies chest pain, denies heart disease, NOTES high blood pressure,denies cardiac stent, denies prior heart attack, denies irregular heart beat, denies high cholesterol, denies poor circulation, denies heart failure, other cardiac issues, denies claudication, denies cold feet, denies peripheral arterial stent. Respiratory: The patient denies tuberculosis, denies pneumonia, denies frequent cough, denies pulmonary embolism, denies shortness of breath, and denies coughing up blood. Gastrointestinal: The patient denies difficulty swallowing, denies acid reflux, denies ulcers, denies vomiting, denies jaundice/hepatitis, denies gallbladder problems, denies black or tarry stools, NOTES hemorrhoids, denies bleeding from rectum, denies diverticulitis, denies constipation, denies diarrhea, denies loss of stool control, and denies hernias. Kidney/Bladder: The patient denies kidney stones, denies urine infections, and denies bloody urine. Skin: The patient denies a history of skin cancer, denies bleeding/changing moles, and denies a history of skin rash. Neurologic: The patient denies a history of epilepsy/convulsions, denies headaches, denies head/spinal injuries, and denies stroke/TIA. Psychiatric: The patient denies psychiatric medications, denies depression, and denies voices, denies substance abuse. Endocrine: The patient denies thyroid disorders, NOTES diabetes, and denies hormonal problems. Hematologic: The patient denies a history of bruising, denies bleeding, and denies anemia, denies blood clots. Infections: The patient denies a history of measles and mumps, denies rheumatic fever, and denies sexually transmitted diseases. Musculoskeletal: The patient denies back pain/injury, denies back problems, denies sciatica, denies knee/foot trouble, denies arthritis, or denies gout. When was patient's last Mammogram screening? 2016 Last Colonoscopy: None Sabiha Pyle PA-C 03/17/2018 4:41 PM Signed HISTORY AND PHYSICAL Melisa Gimenez 1945 REFERRING PHYSICIAN: Candido Garcia Chi, MD CHIEF COMPLAINT: Hemorrhoids HPI: The patient is a 73 year old female referred for hemorrhoids. Outside records were not available for review at time of patient appointment. Melisa notes that she has had hemorrhoids for many years but over the last couple of weeks these have become enlarged and increasingly painful. She does note a recent history of some straining with bowel movements. She states she has tried hydrocortisone preparation creams without relief. Has tried sitz baths with mild temporary improvement in symptoms. She denies any blood in stools or prolapsing hemorrhoids. She states her pain is all external and focal, has one larger hemorrhoid that is primary source of discomfort. Was evaluated by PCP, per patient was referred to see if she would be a candidate for banding procedure. The patient notes no history of upper GI complaints. Melisa has undergone prior endoscopy in 2005 and is overdue for screening colonoscopy. She denies a family history of colon issues. Patient's past medical history is significant for hypertension and diabetes mellitus. She follows with Dr. Garcia for her chronic medical conditions. She denies any history of cardiac or pulmonary issues. Denies any problems with sedation in the past. PAST MEDICAL HISTORY Diagnosis Date - Diabetes (HCC) - Hypercholesteremia PAST SURGICAL HISTORY Procedure Laterality Date - HYSTERECTOMY Current Outpatient Prescriptions: citalopram (CELEXA) 20 mg tablet Take 20 mg by mouth once daily. VITAMIN D 50,000 unit capsule Take 1 capsule by mouth once each week. HUMULIN 70/30 U-100 INSULIN 100 unit/mL (70-30) Inject 15 units sub-q 2 times daily lisinopril-hydrochlorothiazide (PRINZIDE,ZESTORETIC) 20-12.5 mg per tablet Take 2 tablets by mouth once daily. metFORMIN (GLUCOPHAGE) 1,000 mg tablet Take 1,000 mg by mouth twice daily. simvastatin (ZOCOR) 40 mg tablet Take 40 mg by mouth daily at bedtime. No current facility-administered medications for this visit. ALLERGIES: Sulfa (Sulfonamide Antibiotics) PERSONAL HISTORY: Social History Marital status: Spouse name: Years of education: Number of children: Social History Main Topics Smoking status: Never Smoker Smokeless tobacco: Never Used Alcohol use: No FAMILY HISTORY: FAMILY HISTORY Problem Relation Age of Onset - Diabetes Father - Heart Father - Diabetes Brother REVIEW OF SYMPTOMS: The review of systems data was entered by the nurse and reviewed by me Nursing Notes: Sabiha Funk LPN 03/14/2018 9:46 AM Signed REVIEW OF SYSTEMS: General: The patient denies fatigue, denies weight loss, denies weight gain, denies feeling hot, and denies feelings of cold. Eyes: The patient denies glaucoma, denies eye injury/surgery, wears glasses or contacts. Ear/Nose/Throat: The patient denies allergies, denies hayfever, denies ear infections, and denies bloody noses. Cardiovascular: The patient denies chest pain, denies heart disease, NOTES high blood pressure,denies cardiac stent, denies prior heart attack, denies irregular heart beat, denies high cholesterol, denies poor circulation, denies heart failure, other cardiac issues, denies claudication, denies cold feet, denies peripheral arterial stent. Respiratory: The patient denies tuberculosis, denies pneumonia, denies frequent cough, denies pulmonary embolism, denies shortness of breath, and denies coughing up blood. Gastrointestinal: The patient denies difficulty swallowing, denies acid reflux, denies ulcers, denies vomiting, denies jaundice/hepatitis, denies gallbladder problems, denies black or tarry stools, NOTES hemorrhoids, denies bleeding from rectum, denies diverticulitis, denies constipation, denies diarrhea, denies loss of stool control, and denies hernias. Kidney/Bladder: The patient denies kidney stones, denies urine infections, and denies bloody urine. Skin: The patient denies a history of skin cancer, denies bleeding/changing moles, and denies a history of skin rash. Neurologic: The patient denies a history of epilepsy/convulsions, denies headaches, denies head/spinal injuries, and denies stroke/TIA. Psychiatric: The patient denies psychiatric medications, denies depression, and denies voices, denies substance abuse. Endocrine: The patient denies thyroid disorders, NOTES diabetes, and denies hormonal problems. Hematologic: The patient denies a history of bruising, denies bleeding, and denies anemia, denies blood clots. Infections: The patient denies a history of measles and mumps, denies rheumatic fever, and denies sexually transmitted diseases. Musculoskeletal: The patient denies back pain/injury, denies back problems, denies sciatica, denies knee/foot trouble, denies arthritis, or denies gout. When was patient's last Mammogram screening? 2017 Last Colonoscopy: None Sabiha Funk LPN I have confirmed and edited as necessary, the PFSH and ROS obtained by others. PHYSICAL EXAMINATION: General: The patient is 73 year old female, well nourished, well hydrated in no acute distress. The patient is oriented to time, place, and person. VITALS: Blood pressure 132/58, pulse 70, weight 60.3 kg (133 lb). There is no height or weight on file to calculate BMI. HEENT: Normal cephalic, ataumatic, pupils are equally round, sclera are anicteric, mucous membranes are moist, oropharynx is clear. Neck has no masses, asymmetry or lymphadenopathy. Respiratory: Clear to auscultation and percussion. Normal respiratory excursion and pattern. Cardiac: Examination is regular rate and rhythm. Normal S1/S2 Abdominal exam: Soft, nontender, with no palpable masses. No hepatosplenomegaly. No palpable hernias. Rectal exam: +large, tender slightly firm but non-thrombosed external hemorrhoidal bundle at 1 o'clock and smaller external hemorrhoid at 6 o'clock. No fissure noted. RIDGE deferred Extremities: no clubbing, cyanosis or edema. No adenopathy. Other: LABORATORY VALUES: As Noted RADIOLOGIC STUDIES: As Noted Assessment IMPRESSION: symptomatic external hemorrhoid. Need for screening colonoscopy PLAN: Dr. Noyola also evaluated the patient and participated in development of the following plan. Dr. Noyola has recommended screening colonoscopy prior to any surgical intervention for hemorrhoids. We have also recommended attempting additional conservative treatments for the hemorrhoids prior to surgery. Discussed that the symptomatic external tag would not benefit from banding, as that is typically used for internal bleeding hemorrhoids. The patient wishes to have the large symptomatic superior external hemorrhoid excised, noting this has not improved with conservative measures. Dr. Noyola has offered hemorrhoidectomy of the larger hemorrhoidal bundle to be done in the OR at a separate setting from colonoscopy. We did discuss expectations for significant discomfort and swelling post-hemorrhoidectomy. Patient notes she still wishes to proceed. We discussed the risks and benefits of the planned procedures. I have informed the patient that complications can occur with both procedures. The patient had the opportunity to ask questions concerning the planned endoscopy and hemorrhoidectomy. My staff has also explained the procedures to the patient in understandable terms and has given the patient printed material concerning the procedure. The patient freely consents to both endoscopy and hemorrhoidectomy. I plan to use golytely bowel preparation in addition to 1 day of clear liquids prior to endoscopy Recommend clear liquid diet for 1 day prior to hemorrhoidectomy The patient has been instructed to contact her PCP for instructions regarding her diabetic medications which may require adjusment during bowel preparation and the days of the procedures I plan for monitored anesthetic care. Patient records/most recent HANDP requested from Dr. Garcia's office for review Diagnoses: (Z12.11) Encounter for screening for malignant neoplasm of colon (primary encounter diagnosis) (K64.4) External hemorrhoids My findings have been communicated to Dr. Garcia via shared medical record. This note will be forwarded to Dr. Candido Garcia MD. Return to Clinic: The patient is instructed to follow-up with me 1 week post operatively. Patient verbalized understanding of all above and agreed with the plan ERIC Lake PA-C 03/14/2018 10:42 AM Signed Plan for colonoscopy with Dr. Noyola. Please contact Dr. Garcia for instructions regarding your diabetic medications for the bowel prep and procedure days. You may take your blood pressure medication with a small sip of water Recommend sitz baths, topical dibucaine ointment (available over the counter) for hemorrhoids. Recommend starting a daily fiber supplement and plenty of fluids. Plan for hemorrhoidectomy if symptoms do not resolve with conservative measures Referring Provider: CANDIDO GARCIA CHI [[id number]] Allergies As of Date: 03/14/2018 Noted Allergy Reaction SULFA (SULFONAMIDE ANTIBIOTICS) 03/14/2018 5 - Intolerance Date Reviewed: 03/14/2018 Reviewed by: Sabiha Funk LPN - Fully Assessed Reason for Visit: Hemorrhoids [09395] Primary Visit Diagnosis:Encounter for screening for malignant neoplasm of colon [Z12.11] Other Visit Diagnosis:External hemorrhoids [K64.4] Order(s):[] peg 3350-Electrolytes (GOLYTELY) 236-22.74-6.74 -5.86 gram suspensionTake 4,000 mL by mouth one time only for 1 dose.Disp: 1 BottleRfl: 0 Prescriptions as of 03/14/2018 Sig: CITALOPRAM 20 MG TABLET Take 20 mg by mouth once damien* VITAMIN D2 50,000 UNIT CAPSULE Take 1 capsule by mouth once * HUMULIN 70/30 U-100 INSULIN 1* Inject 15 units sub-q 2 times* LISINOPRIL 20 MG-HYDROCHLOROT* Take 2 tablets by mouth once * METFORMIN 1,000 MG TABLET Take 1,000 mg by mouth twice * SIMVASTATIN 40 MG TABLET Take 40 mg by mouth daily at * PEG 3350-ELECTROLYTES 236 GRA* Take 4,000 mL by mouth one ti* Problem List As Of Date: 03/14/2018 (None) Other instructions from your clinician: Plan for colonoscopy with Dr. Noyola. Please contact Dr. Garcia for instructions regarding your diabetic medications for the bowel prep and procedure days. You may take your blood pressure medication with a small sip of water Recommend sitz baths, topical dibucaine ointment (available over the counter) for hemorrhoids. Recommend starting a daily fiber supplement and plenty of fluids. Plan for hemorrhoidectomy if symptoms do not resolve with conservative measures Visit Notes: >> Sabiha Funk LPN Mon Mar 14, 2018 9:45 AM Status: Signed REVIEW OF SYSTEMS: General: The patient denies fatigue, denies weight loss, denies weight gain, denies feeling hot, and denies feelings of cold. Eyes: The patient denies glaucoma, denies eye injury/surgery, wears glasses or contacts. Ear/Nose/Throat: The patient denies allergies, denies hayfever, denies ear infections, and denies bloody noses. Cardiovascular: The patient denies chest pain, denies heart disease, NOTES high blood pressure,denies cardiac stent, denies prior heart attack, denies irregular heart beat, denies high cholesterol, denies poor circulation, denies heart failure, other cardiac issues, denies claudication, denies cold feet, denies peripheral arterial stent. Respiratory: The patient denies tuberculosis, denies pneumonia, denies frequent cough, denies pulmonary embolism, denies shortness of breath, and denies coughing up blood. Gastrointestinal: The patient denies difficulty swallowing, denies acid reflux, denies ulcers, denies vomiting, denies jaundice/hepatitis, denies gallbladder problems, denies black or tarry stools, NOTES hemorrhoids, denies bleeding from rectum, denies diverticulitis, denies constipation, denies diarrhea, denies loss of stool control, and denies hernias. Kidney/Bladder: The patient denies kidney stones, denies urine infections, and denies bloody urine. Skin: The patient denies a history of skin cancer, denies bleeding/changing moles, and denies a history of skin rash. Neurologic: The patient denies a history of epilepsy/convulsions, denies headaches, denies head/spinal injuries, and denies stroke/TIA. Psychiatric: The patient denies psychiatric medications, denies depression, and denies voices, denies substance abuse. Endocrine: The patient denies thyroid disorders, NOTES diabetes, and denies hormonal problems. Hematologic: The patient denies a history of bruising, denies bleeding, and denies anemia, denies blood clots. Infections: The patient denies a history of measles and mumps, denies rheumatic fever, and denies sexually transmitted diseases. Musculoskeletal: The patient denies back pain/injury, denies back problems, denies sciatica, denies knee/foot trouble, denies arthritis, or denies gout. When was patient's last Mammogram screening? 2017 Last Colonoscopy: None Sabiha Funk LPN Prescriptions ordered this encounter Disp Refills Start End PEG 3350-ELECTROLYTES 236 GRAM-22.74* 1 Maciel* 0 03/14/2018 03/14/2018 Route: ORAL Sig: Take 4,000 mL by mouth one time only for 1 dose. Follow-up and Disposition History Recorded Encounter Status:Closed by KARLA PYLE PA-C on 03/17/18 HOSP Observed: 03/14/2018 Status: COMPLETED Source: [place] 12:00 AM [facility] REPOSITORY Patient:Melisa GimenezN: <[id number]> Height:No patient height recorded for this patient. Weight:132 lb 15 oz (60.3 kg) Outpatient Medications as of 03/24/18: citalopram (CELEXA) 20 mg tablet VITAMIN D 50,000 unit capsule HUMULIN 70/30 U-100 INSULIN 100 unit/mL (70-30) lisinopril-hydrochlorothiazide (PRINZIDE,ZESTORETIC) 20-12.5 mg per tablet metFORMIN (GLUCOPHAGE) 1,000 mg tablet simvastatin (ZOCOR) 40 mg tablet Admission/Clinic Administered Medications as of 03/24/18: lactated ringers infusion Problem List: Hemorrhoid [K64.9] Allergies: Sulfa (Sulfonamide Antibiotics) Date Verified: 03/24/18 Lab Values No results within the last 30 days for the following basenames: K,HCT Progress Notes ([facility]): Kumar Mcclain 03/14/2018 1:00 PM Signed 03-24-2018 Colon [facility], 03-29-2018 Hemorrhoidectomy [place] Kumar Mcclain Progress Notes ([facility]): Sabiha Funk LPN 03/14/2018 9:46 AM Signed REVIEW OF SYSTEMS: General: The patient denies fatigue, denies weight loss, denies weight gain, denies feeling hot, and denies feelings of cold. Eyes: The patient denies glaucoma, denies eye injury/surgery, wears glasses or contacts. Ear/Nose/Throat: The patient denies allergies, denies hayfever, denies ear infections, and denies bloody noses. Cardiovascular: The patient denies chest pain, denies heart disease, NOTES high blood pressure,denies cardiac stent, denies prior heart attack, denies irregular heart beat, denies high cholesterol, denies poor circulation, denies heart failure, other cardiac issues, denies claudication, denies cold feet, denies peripheral arterial stent. Respiratory: The patient denies tuberculosis, denies pneumonia, denies frequent cough, denies pulmonary embolism, denies shortness of breath, and denies coughing up blood. Gastrointestinal: The patient denies difficulty swallowing, denies acid reflux, denies ulcers, denies vomiting, denies jaundice/hepatitis, denies gallbladder problems, denies black or tarry stools, NOTES hemorrhoids, denies bleeding from rectum, denies diverticulitis, denies constipation, denies diarrhea, denies loss of stool control, and denies hernias. Kidney/Bladder: The patient denies kidney stones, denies urine infections, and denies bloody urine. Skin: The patient denies a history of skin cancer, denies bleeding/changing moles, and denies a history of skin rash. Neurologic: The patient denies a history of epilepsy/convulsions, denies headaches, denies head/spinal injuries, and denies stroke/TIA. Psychiatric: The patient denies psychiatric medications, denies depression, and denies voices, denies substance abuse. Endocrine: The patient denies thyroid disorders, NOTES diabetes, and denies hormonal problems. Hematologic: The patient denies a history of bruising, denies bleeding, and denies anemia, denies blood clots. Infections: The patient denies a history of measles and mumps, denies rheumatic fever, and denies sexually transmitted diseases. Musculoskeletal: The patient denies back pain/injury, denies back problems, denies sciatica, denies knee/foot trouble, denies arthritis, or denies gout. When was patient's last Mammogram screening? 2017 Last Colonoscopy: None Sabiha Pyle PA-C 03/17/2018 4:41 PM Signed HISTORY AND PHYSICAL Melisa Gimenez 1945 REFERRING PHYSICIAN: Candido Garcia Chi, MD CHIEF COMPLAINT: Hemorrhoids HPI: The patient is a 73 year old female referred for hemorrhoids. Outside records were not available for review at time of patient appointment. Melisa notes that she has had hemorrhoids for many years but over the last couple of weeks these have become enlarged and increasingly painful. She does note a recent history of some straining with bowel movements. She states she has tried hydrocortisone preparation creams without relief. Has tried sitz baths with mild temporary improvement in symptoms. She denies any blood in stools or prolapsing hemorrhoids. She states her pain is all external and focal, has one larger hemorrhoid that is primary source of discomfort. Was evaluated by PCP, per patient was referred to see if she would be a candidate for banding procedure. The patient notes no history of upper GI complaints. Melisa has undergone prior endoscopy in 2005 and is overdue for screening colonoscopy. She denies a family history of colon issues. Patient's past medical history is significant for hypertension and diabetes mellitus. She follows with Dr. Garcia for her chronic medical conditions. She denies any history of cardiac or pulmonary issues. Denies any problems with sedation in the past. PAST MEDICAL HISTORY Diagnosis Date - Diabetes (HCC) - Hypercholesteremia PAST SURGICAL HISTORY Procedure Laterality Date - HYSTERECTOMY Current Outpatient Prescriptions: citalopram (CELEXA) 20 mg tablet Take 20 mg by mouth once daily. VITAMIN D 50,000 unit capsule Take 1 capsule by mouth once each week. HUMULIN 70/30 U-100 INSULIN 100 unit/mL (70-30) Inject 15 units sub-q 2 times daily lisinopril-hydrochlorothiazide (PRINZIDE,ZESTORETIC) 20-12.5 mg per tablet Take 2 tablets by mouth once daily. metFORMIN (GLUCOPHAGE) 1,000 mg tablet Take 1,000 mg by mouth twice daily. simvastatin (ZOCOR) 40 mg tablet Take 40 mg by mouth daily at bedtime. No current facility-administered medications for this visit. ALLERGIES: Sulfa (Sulfonamide Antibiotics) PERSONAL HISTORY: Social History Marital status: Spouse name: Years of education: Number of children: Social History Main Topics Smoking status: Never Smoker Smokeless tobacco: Never Used Alcohol use: No FAMILY HISTORY: FAMILY HISTORY Problem Relation Age of Onset - Diabetes Father - Heart Father - Diabetes Brother REVIEW OF SYMPTOMS: The review of systems data was entered by the nurse and reviewed by nd Nursing Notes: Sabiha Funk LPN 03/14/2018 9:46 AM Signed REVIEW OF SYSTEMS: General: The patient denies fatigue, denies weight loss, denies weight gain, denies feeling hot, and denies feelings of cold. Eyes: The patient denies glaucoma, denies eye injury/surgery, wears glasses or contacts. Ear/Nose/Throat: The patient denies allergies, denies hayfever, denies ear infections, and denies bloody noses. Cardiovascular: The patient denies chest pain, denies heart disease, NOTES high blood pressure,denies cardiac stent, denies prior heart attack, denies irregular heart beat, denies high cholesterol, denies poor circulation, denies heart failure, other cardiac issues, denies claudication, denies cold feet, denies peripheral arterial stent. Respiratory: The patient denies tuberculosis, denies pneumonia, denies frequent cough, denies pulmonary embolism, denies shortness of breath, and denies coughing up blood. Gastrointestinal: The patient denies difficulty swallowing, denies acid reflux, denies ulcers, denies vomiting, denies jaundice/hepatitis, denies gallbladder problems, denies black or tarry stools, NOTES hemorrhoids, denies bleeding from rectum, denies diverticulitis, denies constipation, denies diarrhea, denies loss of stool control, and denies hernias. Kidney/Bladder: The patient denies kidney stones, denies urine infections, and denies bloody urine. Skin: The patient denies a history of skin cancer, denies bleeding/changing moles, and denies a history of skin rash. Neurologic: The patient denies a history of epilepsy/convulsions, denies headaches, denies head/spinal injuries, and denies stroke/TIA. Psychiatric: The patient denies psychiatric medications, denies depression, and denies voices, denies substance abuse. Endocrine: The patient denies thyroid disorders, NOTES diabetes, and denies hormonal problems. Hematologic: The patient denies a history of bruising, denies bleeding, and denies anemia, denies blood clots. Infections: The patient denies a history of measles and mumps, denies rheumatic fever, and denies sexually transmitted diseases. Musculoskeletal: The patient denies back pain/injury, denies back problems, denies sciatica, denies knee/foot trouble, denies arthritis, or denies gout. When was patient's last Mammogram screening? 2017 Last Colonoscopy: None Sabiha Funk LPN I have confirmed and edited as necessary, the PFSH and ROS obtained by others. PHYSICAL EXAMINATION: General: The patient is 73 year old female, well nourished, well hydrated in no acute distress. The patient is oriented to time, place, and person. VITALS: Blood pressure 132/58, pulse 70, weight 60.3 kg (133 lb). There is no height or weight on file to calculate BMI. HEENT: Normal cephalic, ataumatic, pupils are equally round, sclera are anicteric, mucous membranes are moist, oropharynx is clear. Neck has no masses, asymmetry or lymphadenopathy. Respiratory: Clear to auscultation and percussion. Normal respiratory excursion and pattern. Cardiac: Examination is regular rate and rhythm. Normal S1/S2 Abdominal exam: Soft, nontender, with no palpable masses. No hepatosplenomegaly. No palpable hernias. Rectal exam: +large, tender slightly firm but non-thrombosed external hemorrhoidal bundle at 1 o'clock and smaller external hemorrhoid at 6 o'clock. No fissure noted. RIDGE deferred Extremities: no clubbing, cyanosis or edema. No adenopathy. Other: LABORATORY VALUES: As Noted RADIOLOGIC STUDIES: As Noted Assessment IMPRESSION: symptomatic external hemorrhoid. Need for screening colonoscopy PLAN: Dr. Noyola also evaluated the patient and participated in development of the following plan. Dr. Noyola has recommended screening colonoscopy prior to any surgical intervention for hemorrhoids. We have also recommended attempting additional conservative treatments for the hemorrhoids prior to surgery. Discussed that the symptomatic external tag would not benefit from banding, as that is typically used for internal bleeding hemorrhoids. The patient wishes to have the large symptomatic superior external hemorrhoid excised, noting this has not improved with conservative measures. Dr. Noyola has offered hemorrhoidectomy of the larger hemorrhoidal bundle to be done in the OR at a separate setting from colonoscopy. We did discuss expectations for significant discomfort and swelling post-hemorrhoidectomy. Patient notes she still wishes to proceed. We discussed the risks and benefits of the planned procedures. I have informed the patient that complications can occur with both procedures. The patient had the opportunity to ask questions concerning the planned endoscopy and hemorrhoidectomy. My staff has also explained the procedures to the patient in understandable terms and has given the patient printed material concerning the procedure. The patient freely consents to both endoscopy and hemorrhoidectomy. I plan to use golytely bowel preparation in addition to 1 day of clear liquids prior to endoscopy Recommend clear liquid diet for 1 day prior to hemorrhoidectomy The patient has been instructed to contact her PCP for instructions regarding her diabetic medications which may require adjusment during bowel preparation and the days of the procedures I plan for monitored anesthetic care. Patient records/most recent HANDP requested from Dr. Garcia's office for review Diagnoses: (Z12.11) Encounter for screening for malignant neoplasm of colon (primary encounter diagnosis) (K64.4) External hemorrhoids My findings have been communicated to Dr. Garcia via shared medical record. This note will be forwarded to Dr. Candido Garcia MD. Return to Clinic: The patient is instructed to follow-up with me 1 week post operatively. Patient verbalized understanding of all above and agreed with the plan ERIC Lake PA-C 03/14/2018 10:42 AM Signed Plan for colonoscopy with Dr. Noyola. Please contact Dr. Garcia for instructions regarding your diabetic medications for the bowel prep and procedure days. You may take your blood pressure medication with a small sip of water Recommend sitz baths, topical dibucaine ointment (available over the counter) for hemorrhoids. Recommend starting a daily fiber supplement and plenty of fluids. Plan for hemorrhoidectomy if symptoms do not resolve with conservative measures SCREENING MAMM (CAD), Observed: 12/23/2017 Status: F Source: [place] 3:27 PM [facility] REPOSITORY [facility] [address] [place] [address] SCREENING MAMM (CAD), BILAT MR#: [id number] Acct: [id number] Name: MELISA GIMENEZ Rep #: [id number] : 1945 F 72 From: Maxwell Allen MD PCP: Candido Garcia MD, Chi Status: REG CLI Study: SCREENING MAMM (CAD), BILAT Date of Exam: 12/23/17 Exam# [id number] Ordering Dr: Candido Garcia MD MAMMOGRAPHY - BILATERAL SCREENING 3-D KIMO SYNTHESIS REASON FOR EXAM: Female, 72 years old. Recent 5 pound weight loss. Right breast biopsy 1989. PERTINENT HISTORY: No significant family history. TECHNIQUE: Digital bilateral breast kimo (3D mammographic acquisition) in the CC and MLO projections. 2-D mediolateral oblique (MLO) and craniocaudad (CC) views of both breasts were obtained. CAD: Full Field Digital Mammography with Computer Added Detection was performed. COMPARISON: 12/17/2015 through 12/12/2013. FINDINGS: The breast composition is composed of scattered fibroglandular density. No significant asymmetric density, architecture distortion, abnormal microcalcification cluster, dominant mass, adenopathy, skin thickening or nipple retraction identified. Coarse benign-appearing calcifications. BI/SCREENING MAMM (CAD), BILAT IMPRESSION: No mammographic signs of malignancy. Routine yearly mammograms recommended. ASSESSMENT CATEGORY: BIRADS Category 2: Benign. A letter regarding these results will be sent to the patient by the facility within 30 days. FOLLOW UP RECOMMENDATION: Yearly follow up mammogram recommended. (A) Negative mammographic results should not deter biopsy as a palpable lesion should be followed on clinical grounds and biopsy performed if clinically persistent for 3 months or increasing size. Approximately 10% of breast cancers are not detected by mammography. A normal mammogram should not delay biopsy of a clinically suspicious abnormality. Electronically Signed: Maxwell Allen, at 22:26 EDT Tel , Service support , CC: Candido Garcia MD Arcade Game Technician: Signed DEXA BONE DENSITY Observed: 12/23/2017 Status: F Source: [place] 3:27 PM [facility] REPOSITORY [facility] Imaging Services [address] [place] [id number] Dexa Bone Density Study MR#: [id number] Acct: [id number] Name: MELISA GIMENEZ Rep #: [id number] : 1945 F 72 From: Howard Campos MD PCP: Candido Garcia MD, Chi Status: REG CLI Study: Dexa Bone Density Study Date of Exam: 12/23/17 Exam# [id number] Ordering Dr: Candido Garcia MD STUDY: DUAL ENERGY X-RAY ABSORPTIOMETRY / DXA REASON FOR EXAM: Female, 72 years old. The patient is postmenopausal. Loss of height. TECHNIQUE: Bone Mineral Density (BMD) measurements of lumbar spine and bilateral hips were obtained. COMPARISON: Comparison is made with prior study dated December 17, 2015. FINDINGS: Lumbar Spine (L1-L4): g/cm2 (1.237) / T-score (0.5) / Z-score (2.2) Findings are suggestive of normal bone density with a low fracture risk. Left Femur Total: g/cm2 (1.122) / T-score (0.9) / Z-score (2.6) Left Femoral Neck: g/cm2 (1.102) / T-score (0.4) / Z- score (2.3) Right Femur Total: g/cm2 (1.127) / T-score (0.9) / Z- score (2.) Right Femoral Neck: g/cm2 (1.090) / T-score (0.4) / Z- score (2.2) The T-Scores on the most recent prior examination were: Lumbar Spine (L1-L4): There has been improvement of bone density since the previous examination. Left Femur Total: which represents an improvement of 0.7%. Right Femur Total: which represents an improvement of 3.2%. BD/Dexa Bone Density Study IMPRESSION: The patient is considered normal as outlined below according to World Manan Organization (WHO) criteria with a low fracture risk. There has been improvement of bone density since the previous examination. Reference Information: The T-score is the number of standard deviations above or below the standard which is normal for young adults at their peak bone mineral density. The World Health Organization (WHO) interprets the T-scores as follows: Above -1 Normal bone density Between -1 and -2.5 Osteopenia Equal to / or below -2.5 Osteoporosis As a practical clinical guideline, osteopenia may be graded as follows: Mild -1 through -1.5 Moderate -1.6 through -2.0 Severe -2.1 through -2.4 The Z-score is the number of standard deviations above or below age-matched controls. A Z-score of less than -1.5 would be considered abnormal. References: 1. NIH Osteoporosis and Related Bone Diseases http://www.osteo.org 2. International Society for Clinical Densitometry http://www.iscd.org 3. National Osteoporosis Foundation http://www.nof.org Electronically Signed: Howard Campos MD at 16:04 EDT Tel [phone], Service support , CC: Candido Garcia MD Arcade Game Technician: Signed CBC W/DIFF, AUTOMATED Collected: 11/25/2017 Status: F Source: [place] 10:09 AM [facility] REPOSITORY TYPE CODE TESTS RESULT OUT OF RANGE REFERENCE UNITS LAB L100.1000 4.4-11.0 K/mm3 Normal WBC 4.8 LAB L100.1200 4.2-5.4 M/mm3 Low RBC 3.81 LAB L100.1300 12.0-15.0 g/dl Low HGB 11.5 LAB L100.1400 37-47 % Low HCT 34.3 LAB L100.1500 81-99 fL Normal MCV 90.0 LAB L100.1600 27.0-32.0 pg Normal MCH 30.2 LAB L100.1700 32-36 g/gl Normal MCHC 33.5 LAB L100.1810 11.6-14.6 % Normal RDW CV 12.5 LAB L100.1820 35.1-43.9 fl Normal RDW SD 40.9 LAB L100.1900 150-450 K/mm3 Normal PLT 233 LAB L100.2000 6.2-12.0 fl Normal MPV 9.4 LAB L100.2100 47-70 % Normal NEUT% 61.9 LAB L100.2200 19-41 % Normal LY% 24.7 LAB L100.2300 0-10 % High MONO% 10.9 LAB L100.2400 0-5 % Normal EO% 2.3 LAB L100.2500 0-1 % Normal BASO% 0.2 LAB L100.2550 0.0-0.9 % Normal IM GRAN % 0.000 Result Comment: IG% - Immature Granulocytes (promyelocytes, myelocytes and metamyelocytes) > 1% indicates that a LEFT SHIFT is Present. LAB L100.2620 2.0-7.7 X10 3/uL Normal Absolute Neut 3.0 LAB L100.2720 0.83-4.51 X10 3/ul Normal Absolute Lymph 1.18 Performed By: #### L100.0100 #### [facility] [place], [address] COMPREHENSIVE METABOLIC Collected: 11/25/2017 Status: F Source: [place] [facility] 10:09 AM [facility] REPOSITORY TYPE CODE TESTS RESULT OUT OF RANGE REFERENCE UNITS LAB L501.0100 74-106 mg/dL High GLU 157 Result Comment: Fasting Glucose result greater than or equal to 126 mg/dL suggests DIABETES MELLITUS per A.D.A. criteria. Please note revised GLUCOSE reference range effective 2017. LAB L501.1000 7-18 mg/dL Normal BUN 18 LAB L501.1100 0.55-1.02 mg/dL High CREAT,SERUM 1.10 Result Comment: The validity of the calculated GFR AND GFRAA in patients over 70 years has not been determined. Clinical correlation is essential. LAB L501.1110 >60 mL/min Low EST GFR 52 Result Comment: Non- GFR Calc LAB L501.1115 >60 mL/min Normal EST GFR - AA 63 Result Comment: GFR Calc LAB L501.1300 10-20 RATIO Normal BUN/CRE 16.4 LAB L501.1500 6.4-8.2 g/dL T Normal PROT 7.7 LAB L501.1800 3.2-5.0 g/dL Normal ALB 3.8 LAB L501.1950 2.2-4.2 g/dL Normal GLOB 3.9 LAB L501.2000 0.9-2.4 RATIO Normal A/G 1.0 LAB L501.2200 8.5-10.1 mg/dL CA Normal 9.0 LAB L501.4100 15-37 U/L Normal AST 22 LAB L501.4305 45-117 U/L Normal ALK P 66 LAB L501.4405 13-56 U/L Normal ALT 22 LAB L501.4600 0.20-1.00 mg/dL T Normal BILI 0.50 LAB L501.5300 136-145 mmol/L NA Normal 139 LAB L501.5600 3.5-5.1 mmol/L K Normal 3.9 LAB L501.5900 98-107 mmol/L CL Normal 103 LAB L501.6100 21.0-32.0 mmol/L Normal CO2 30.0 LAB L501.6200 5-15 Normal GAP 6 Performed By: #### L500.4050, L501.9520 #### [facility] [address] [place], [address] THYROID STIM HORMONE Collected: 11/25/2017 Status: F Source: [place] (TSH) 10:09 AM [facility] REPOSITORY TYPE CODE TESTS RESULT OUT OF RANGE REFERENCE UNITS LAB L501.9520 0.358-3.74 uIU/mL Normal TSH 1.94 Performed By: #### L500.4050, L501.9520 #### [facility] [address] [place], [address] VITAMIN D,25 HYDROXY Collected: 11/25/2017 Status: F Source: [place] 10:09 AM [facility] REPOSITORY TYPE CODE TESTS RESULT OUT OF RANGE REFERENCE UNITS LAB L506.1000 29.95-100.01 ng/mL Normal Vitamin D 70.7 25-OH Result Comment: Vitamin D 25(OH) Status Range Deficiency <20 ng/mL (50nmol/L) Insuffciency 20 - 30 ng/mL (50 - 75 nmol/L) Sufficiency 30 - 100 ng/mL (75 - 250 nmol/L) Toxicity >100 ng/mL (>250 nmol/L) Performed By: #### L506.1000 #### [facility] [address] [facility] [place], [id number] GLUCOSE, POC Collected: 07/18/2017 Status: F Source: [facility] 11:23 AM [facility] REPOSITORY TYPE CODE TESTS RESULT OUT OF RANGE REFERENCE UNITS LAB GLUX 80-115 mg/dL High Glucose, 182 POC Performed By: #### GLUX #### Unless otherwise noted, all testing performed by [facility] [address] [facility]. [place], [place] [address] CLIA: [id number] [employer]iter: Andriy Torres M.D. GLUCOSE, POC Collected: 07/18/2017 Status: F Source: [facility] 8:18 AM [facility] REPOSITORY TYPE CODE TESTS RESULT OUT OF RANGE REFERENCE UNITS LAB GLUX 80-115 mg/dL High Glucose, 125 POC Performed By: #### GLUX #### Unless otherwise noted, all testing performed by [address] [address] CLIA: [id number] [employer]iter: Andriy Torres M.D. CBC WITH DIFF Collected: 07/18/2017 Status: F Source: [facility] 3:46 AM [facility] REPOSITORY TYPE CODE TESTS RESULT OUT OF RANGE REFERENCE UNITS LAB WBC 3.4-10.6 K/mcL WBC Normal 6.3 LAB RBC 3.7-5.0 M/mcL Low RBC 3.48 LAB HGB 11.6-15.4 g/dL Low Hemoglobin 10.9 LAB HCT 34.4-44.8 % Low Hematocrit 31.0 LAB MCV 82.6-98.9 FL MCV Normal 89.2 LAB MCH 27.9-33.9 pg MCH Normal 31.3 LAB MCHC 33.1-35.1 g/dL MCHC Normal 35.1 LAB RDW 10.0-14.4 % RDW Normal 12.2 LAB PLT 162-402 K/mcL Platelet Normal Count 265 LAB MPV 7.0-10.6 FL MPV Normal 7.8 LAB NEUT# 1.2-6.9 K/mcL Normal Neutrophil # 4.1 LAB LYMPH# 1.0-3.7 K/mcL Normal Lymphocyte # 1.3 LAB MONO# 0.1-0.6 K/mcL High Monocyte # 0.7 LAB EOS# 0-0.5 K/mcL Normal Eosinophil # 0.2 LAB BASO# 0-0.2 K/mcL Basophil Normal # 0.0 LAB SEGNEU% % Normal Segmented Neut % 64.5 LAB LYMP% % Normal Lymphocyte% 21.2 LAB MO% % Monocyte Normal % 10.5 LAB EO% % Normal Eosinophil % 3.3 LAB BA% % Basophil Normal % 0.5 Performed By: #### CBCDIF, CHEM8 #### Unless otherwise noted, all testing performed by [address] [address] CLIA: [id number] [employer]iter: Andriy Torres M.D. BASIC METABOLIC PANEL Collected: 07/18/2017 Status: F Source: [facility] 3:46 AM [facility] REPOSITORY TYPE CODE TESTS RESULT OUT OF REFERENCE UNITS RANGE LAB GLU 70-99 mg/dL High Glucose 101 Result Comment: This test result might be falsely depressed or falsely elevated on samples drawn from patients taking Sulfasalazine and Sulfapyridine. Venipuncture should occur prior to taking either of these drugs. LAB BUN 8-25 mg/dL BUN 15 LAB CREA 0.60-1.20 mg/dL Creatinine 1.07 LAB eGFR >60 ml/min/1.73s Low q.m eGFR,NonAfrican-Am erican 50 Result Comment: Non- GFR Calc eGFR is an estimated Glomerular Filtration Rate based on the value of the patient's serum creatinine. In outpatients, eGFR should be used as a helpful tool in screening for CKD. In inpatients or patients with acute renal failure, eGFR represents the GFR at the moment of the draw and should be used with caution. LAB eGFRB ml/min/1.73sq.m eGFR, -Hungarian >=60 Result Comment: GFR Calc LAB CALCM 8.4-10.2 mg/dL Calcium 8.5 LAB NA 135-145 mmol/L Sodium 138 LAB K 3.5-5.1 mmol/L Potassium 3.8 LAB CL 98-108 mmol/L Chloride 102 LAB CO2 21-32 mmol/L CO2 29 Performed By: #### CBCDIF, CHEM8 #### Unless otherwise noted, all testing performed by [place] [address] CLIA: [id number] [employer]iter: Andriy Torres M.D. GLUCOSE, POC Collected: 07/17/2017 Status: F Source: [facility] 9:04 PM [facility] REPOSITORY TYPE CODE TESTS RESULT OUT OF RANGE REFERENCE UNITS LAB GLUX 80-115 mg/dL High Glucose, 193 POC Performed By: #### GLUX #### Unless otherwise noted, all testing performed by [place] [address] CLIA: [id number] [employer]iter: Andriy Torres M.D. CARDIAC TROPONIN-I Collected: 07/17/2017 Status: F Source: [facility] 7:22 PM [facility] REPOSITORY TYPE CODE TESTS RESULT OUT OF RANGE REFERENCE UNITS LAB CTNI < 45.0 ng/L Normal Cardiac < 15 Troponin-I Result Comment: Elevation of troponin indicates some degree of myocardial necrosis but unless there is a significant rise and/or fall (if elevated) identified, it unlikely that an acute event has taken place Samples from patients routinely receiving high dose biotin therapy (100-300 mg/day) may show falsely decreased results. Please correlate clinically. LAB CTNINT Normal Cardiac No Troponin Comment Biomarker evidence of myocardial injury within the past 14 hours. Performed By: #### CTNI #### Unless otherwise noted, all testing performed by [place] [address] CLIA: [id number] [employer]iter: Andriy Torres M.D. GLUCOSE, POC Collected: 07/17/2017 Status: F Source: [facility] 5:35 PM [facility] REPOSITORY TYPE CODE TESTS RESULT OUT OF RANGE REFERENCE UNITS LAB GLUX 80-115 mg/dL High Glucose, 276 POC Performed By: #### GLUX #### Unless otherwise noted, all testing performed by [place] [address] CLIA: [id number] [employer] Rec[employer]iter: Andriy Torres M.D. CARDIAC TROPONIN-I Collected: 07/17/2017 Status: F Source: [facility] 4:54 PM [facility] REPOSITORY TYPE CODE TESTS RESULT OUT OF RANGE REFERENCE UNITS LAB CTNI < 45.0 ng/L Normal Cardiac < 15 Troponin-I Result Comment: Elevation of troponin indicates some degree of myocardial necrosis but unless there is a significant rise and/or fall (if elevated) identified, it unlikely that an acute event has taken place Samples from patients routinely receiving high dose biotin therapy (100-300 mg/day) may show falsely decreased results. Please correlate clinically. LAB CTNINT Normal Cardiac No Troponin Comment Biomarker evidence of myocardial injury within the past 14 hours. Performed By: #### CTNI #### Unless otherwise noted, all testing performed by [place] [address] CLIA: [id number] [employer] Rec[employer]iter: Andriy Torres M.D. CT CHEST PE PROTOCOL Observed: 07/17/2017 Status: F Source: [facility] 11:54 AM [facility] REPOSITORY Final Report Accession No: [id number] Performed: Jul 17 2017 11:54AM Examination: CT CHEST PE PROTOCOL EXAM: CT CHEST PE PROTOCOL CLINICAL STATEMENT: Chest pain and shortness of breath today, constipation for one week. Prior hysterectomy and history of breast cancer. COMPARISON: None. TECHNIQUE: CT angiography of the pulmonary arteries following the administration of 75 mL Isovue-370 intravenous contrast. MIP (maximum intensity projection) images or 3D post processing was performed. Dose reduction techniques were achieved by using automated exposure control and/or adjustment of mA and/or kV according to patient size and/or use of iterative reconstruction technique. FINDINGS: No filling defect identified within the main, lobar, or evaluable portions of the segmental pulmonary arteries. Normal caliber of the main pulmonary artery. Thoracic aorta without evidence for aneurysm or dissection. Heart is within normal limits in size. No pericardial effusion. No mediastinal, hilar, or axillary lymphadenopathy. Mild dependent atelectatic changes within the lower lobes. No focal consolidative process, pleural effusion, or pneumothorax. The central airways are patent. Included portions of the upper abdomen are unremarkable. No suspicious osteolytic or osteoblastic lesion. IMPRESSION: 1. No evidence for acute pulmonary thromboembolic disease. No thoracic aortic aneurysm or dissection. 2. No acute pulmonary parenchymal process. 3. Coronary artery atherosclerotic calcifications. Interpreting Physician: KATE PERES M.D. Trans: mmyers : cc: CT ABDO,PELVIS IV Observed: 07/17/2017 Status: F Source: [facility] CONTRAST ONLY 11:54 AM [facility] REPOSITORY Final Report Accession No: [id number] Performed: Jul 17 2017 11:54AM Examination: CT ABDO,PELVIS IV CONTRAST ONLY CT ABDO,PELVIS IV CONTRAST ONLY CLINICAL STATEMENT: RLQ, LLQ tenderness shortness of breath, constipation. COMPARISON: None. TECHNIQUE: CT examination of the abdomen and pelvis following the administration of 75 mL Isovue-370 intravenous contrast. ?Coronal and sagittal reformations were performed. Dose reduction techniques were achieved by using automated exposure control and/or adjustment of mA and/or kV according to patient size and/or use of iterative reconstruction technique. FINDINGS: CT SCAN OF THE ABDOMEN: Lung bases are clear. There is fatty infiltration of the liver. No masses or biliary ductal dilatation is seen. Spleen, pancreas, adrenal glands, and kidneys are normal. Tiny nonobstructive renal calculi on the right with a small angiomyolipoma right superior pole measuring 6 mm. There is a periampullary duodenal diverticulum with calcific debris. The proximal bowel is otherwise normal. No free fluid or free air is seen. CT SCAN OF THE PELVIS: Distal ureters and bladder are normal. There has been a prior hysterectomy. There is acute on, complicated sigmoid diverticulitis. There is diverticulosis left colon. Bowel and appendix are otherwise unremarkable. No free air or free fluid is seen. There is nonaneurysmal atherosclerotic disease of the aorta. There are coronary artery calcifications. There are degenerative changes lower lumbar spine. IMPRESSION: 1. Acute uncomplicated sigmoid diverticulitis. No abscess or free air is seen. 2. Fatty liver. 3. Coronary artery disease. 4. Right renal angiomyolipoma and tiny nonobstructive renal calculi. Interpreting Physician: MANUEL MEDINA M.D. Trans: mmyers : cc: CHEST (ONE VIEW Observed: 07/17/2017 Status: F Source: [facility] ONLY) 9:29 AM [facility] REPOSITORY Final Report Accession No: [id number] Performed: Jul 17 2017 9:29AM Examination: CHEST (ONE VIEW ONLY) PORTABLE AP CHEST ON 07/17/2017 INDICATION: Chest pain. COMPARISON: None. FINDINGS: Telemetry leads overlie the chest. No pneumothorax or pleural effusion is evident. Cardiomediastinal contours are appropriate. There is no evidence of congestion or pneumonia. IMPRESSION: No evidence of an acute pulmonary process. Interpreting Physician: PING LORENZO M.D. Trans: dcarr : cc: CBC W/O DIFF Collected: 07/17/2017 Status: F Source: [facility] 9:19 AM [facility] REPOSITORY TYPE CODE TESTS RESULT OUT OF REFERENCE UNITS RANGE LAB WBC 3.4-10.6 K/mcL WBC High 12.8 LAB RBC 3.7-5.0 M/mcL RBC 3.83 LAB HGB 11.6-15.4 g/dL Hemoglobin 11.8 LAB HCT 34.4-44.8 % Low Hematocrit 34.0 LAB MCV 82.6-98.9 FL MCV 88.7 LAB MCH 27.9-33.9 pg MCH 30.9 LAB MCHC 33.1-35.1 g/dL MCHC 34.8 LAB RDW 10.0-14.4 % RDW 12.4 LAB PLT 162-402 K/mcL Platelet Count 269 LAB MPV 7.0-10.6 FL MPV 7.5 Performed By: #### CBCWOD, EDCTNI, CHEM8 #### Unless otherwise noted, all testing performed by [place] [address] CLIA: [id number] [employer]iter: Andriy Torres M.D. ED CARDIAC TROPONIN-I Collected: 07/17/2017 Status: F Source: [facility] 9:19 [facility] REPOSITORY TYPE CODE TESTS RESULT OUT OF RANGE REFERENCE UNITS LAB EDCTNI < 45 ng/L Normal ED Cardiac < 15 Troponin-I Result Comment: Elevation of troponin indicates some degree of myocardial necrosis but unless there is a significant rise and/or fall (if elevated) identified, it unlikely that an acute event has taken place Samples from patients routinely receiving high dose biotin therapy (100-300 mg/day) may show falsely decreased results. Please correlate clinically. Performed By: #### CBCWOD, EDCTNI, CHEM8 #### Unless otherwise noted, all testing performed by [address] [address] CLIA: [id number] [employer]iter: Andriy Torres M.D. BASIC METABOLIC PANEL Collected: 07/17/2017 Status: F Source: [facility] 9:19 [facility] REPOSITORY TYPE CODE TESTS RESULT OUT OF REFERENCE UNITS RANGE LAB GLU 70-99 mg/dL High Glucose 137 Result Comment: This test result might be falsely depressed or falsely elevated on samples drawn from patients taking Sulfasalazine and Sulfapyridine. Venipuncture should occur prior to taking either of these drugs. LAB BUN 8-25 mg/dL BUN 16 LAB CREA 0.60-1.20 mg/dL Creatinine 1.09 LAB eGFR >60 ml/min/1.73s Low q.m eGFR,NonAfrican-Am erican 49 Result Comment: Non- GFR Calc eGFR is an estimated Glomerular Filtration Rate based on the value of the patient's serum creatinine. In outpatients, eGFR should be used as a helpful tool in screening for CKD. In inpatients or patients with acute renal failure, eGFR represents the GFR at the moment of the draw and should be used with caution. LAB eGFRB >60 ml/min/1.73sq.m eGFR, -Hungarian Low 59 Result Comment: GFR Calc LAB CALCM 8.4-10.2 mg/dL Calcium 9.2 LAB NA 135-145 mmol/L Sodium 136 LAB K 3.5-5.1 mmol/L Potassium 3.8 LAB CL 98-108 mmol/L Chloride 101 LAB CO2 21-32 mmol/L CO2 25 Performed By: #### CBCWOD, EDCTNI, CHEM8 #### Unless otherwise noted, all testing performed by [place] [address] CLIA: [id number] [employer] Rec[employer]iter: Andriy Torres M.D. D-DIMER Collected: 07/17/2017 Status: F Source: [facility] 9:19 AM [facility] REPOSITORY TYPE CODE TESTS RESULT OUT OF REFERENCE UNITS RANGE LAB DDIMR < .5 mcg/ml (FEU) High D-Dimer 2.30 Result Comment: This test is intended for use in conjunction with a clinical pretest probability (PTP) assessment model to exclude pulmonary embolism (PE) and deep vein thrombosis (DVT) in outpatients suspected of PE or DVT. Performed By: #### DDIMR #### Unless otherwise noted, all testing performed by [place] [address] CLIA: [id number] [employer]iter: Andriy Torres M.D. ALLERGIES ALLERGIES DATE TYPE / CODE NAME / CODE REACTION SEVERITY SOURCE 03/14/2018 Drug SULFA INTOLERANCE [facility] Class/64779 (SULFONAMIDE [place] 1003(SNOMED ANTIBIOTICS) Repository CT) 07/22/2017 Drug SULFA [facility] Class/50898 (SULFONAMIDE Repository 1003(SNOMED ANTIBIOTICS) CT) ENCOUNTERS ENCOUNTERS ADMIT/DISCHARGE ACCOUNT NUMBER ADMITTING ENCOUNTER LOCATION SOURCE CLASS 06/02/2018 [id number] [facility] ding:CT Repository 05/26/2018 [id number] [facility] ding:POLAB3 Repository 03/29/2018/03/29/20 [id number] NERIS NOYOLA [address] Repository 03/24/2018/03/24/20 [id number] NERIS NOYOLA [address] Repository 03/14/2018/03/18/[id number] Repository 12/23/2017 [id number] [facility] ding:OPBD Repository 11/25/2017 [id number] [facility] ding:POLAB3 Repository 07/22/2017/07/23/19 [id number] ROS[place], [facility] [address] [facility] [address] Repository 07/17/2017/07/19/[id number] [facility] [place] [address] [place] [facility] A40B [place] 40[address]Bed: [facility] A40B [id number] Repository PAYERS PAYERS ENCOUNTER GUARANTOR PAYER SUBSCRIBER SOURCE 06/02/2018 MELISA E Primary MELISA E Jase [id number] Insurance:MEDICARE KIEFERDOB: Community [address] [place] [address], PART A [facility] [id number] [address]Hqg: Number: Repository [id number] () Date:2018-06-02 06/02/2018 Secondary MELISA E [place] [facility] Number: [id number] Hospital [id number] Repository Date:8105-12-47[address], [place] [address]MP: 06/02/2018 Tertiary NOT GIVENUNK [place] Insurance:SELF PAY [facility] Number: Effective Repository Date:2018-06-02 05/26/2018 Melisa E Primary Melisa E [place] [id number] Insurance:MEDICARE KieferDOB: [address] A [facility] [id number] [facility] Hospital [address]Cgc: Number: Repository [id number] () Date:2018-05-26 05/26/2018 Secondary Melisa E [place] [facility] Number: [id number] Hospital [id number] Repository Date:4350-31-07[address], [place] [address]AM: 05/26/2018 Tertiary NOT GIVENUNK Jase Insurance:SELF PAY [facility] Number: Effective Repository Date:2018-05-26 12/23/2017 Melisa E Primary Melisa E [place] [id number] Insurance:MEDICARE CharlestonDOB: [address] A [facility] [id number] [facility] Indian Hospital [address]Bxk: Number: Repository [id number] () Date:2017-11-26 12/23/2017 Secondary Melisa E [place] [facility] Community Number: [id number] Hospital [id number] Repository Date:3139-85-90[address], [place] [address]LC: 12/23/2017 Tertiary NOT GIVENUNK [place] Insurance:SELF PAY [facility] Number: Effective Repository Date:2017-11-26 11/25/2017 Melisa E Primary Melisa E [place] [id number] Insurance:MEDICARE [place]DOB: [address] A [facility] [id number] Defiance Indian Hospital [address]Yqh: Number: Repository [id number] (HP) Date:2017-11-25 11/25/2017 Secondary Melisa E J[place] Insurance:AARPPolicy KieferDOB: Community Number: [id number] Hospital [id number] Repository Date:0498-81-39IW [address] [address]VH: 11/25/2017 Tertiary NOT GIVENUNK Jase Insurance:SELF PAY [facility] Number: Effective Repository Date:2017-11-25 07/22/2017 MELISA Primary MELISA [facility] KIEFERDOB: Insurance:MEDICAREPol KIEFERDOB: Three Repository icy Number: [id number] [facility] [id number] [address], Date:2209-47-29IXF[address] [address]Xyy: J15 PART A [facility] [address]Web: [facility] [address]PNLPXWAJQ, () [place] [address]MX: (HP) 07/22/2017 Secondary MELISA [facility] EFERDOB: Three Repository Number: [id number] [facility] Date:6063-23-25VK [address] [place] [address]Wsb: [address]MR: [phone] (HP) 07/17/2017 Primary MELISA [facility] Insurance:MedicarePol KIEFERDOB: Monique and icy Number: [id number] [facility] [id number] [address] Repository Date:9322-47-17Nbxg[address], Name:Adriano [place] [address]Efh: (HP) 07/17/2017 Secondary MELISA [facility] Insurance:MedicarePol KIEFERDOB: Monique and icy Number: [id number] [facility] [id number] [address] Repository Date:7933-17-94Llyw [address] [place] [address], Name:Adriano [place] [address]Dsc: () 07/17/2017 [facility] Insurance:BALTAZAR GUERREROB: [place] [facility] [id number] [facility] OptionsPolicy Number: [address] Repository [id number] [address] [place] [address], Date:[facility] [address]Bmv: Name:[facility] [place] [id number], [place] () [id number]:
== END ==
PROVIDERS: Family Provider Family Medicine Geriatric Medicine; PCP Family Medicine Geriatric Medicine; Referring Provider Family Medicine Geriatric Medicine; Visit Provider Family Medicine Geriatric Medicine
DX: K57.92 Diverticulitis of intestine, part unspecified, without perforation or abscess without bleeding (principal); R91.8 Other nonspecific abnormal finding of lung field; R10.9 Unspecified abdominal pain
CPT/HCPCS: 36415; 74177; 80048; 85025; Q9967

== ENCOUNTER → 2018-12-01 10:04 | Outpatient (CLI) | payer MEDICARE, OTHER, SELFPAY ==
[2018-12-01 12:33] LABS: Absolute Lymphocyte Count 1.97 X10^3/uL (0.83-4.51); Basophil# 0.04 X10^3/uL; Basophil% 0.6 % (0-1); Eosinophil# 0.17 X10^3/uL; Eosinophils% 2.5 % (0-5); Hematocrit 37.6 % (37-47); Hemoglobin 12.9 g/dL (12.0-15.0); Lymphocyte # 1.97 X10^3/ul (4.0); Lymphocyte % 29.5 % (19-41); Mean Corp Hgb Conc 34.3 g/dL (32-36); Mean Corpuscular Hgb 30.7 pg (27.0-32.0); Mean Corpuscular Volume 89.5 fL (81-99); Monocyte# 0.49 X10^3/uL; Monocyte% 7.3 % (0-10); NRBC Flagged by Analyzer 0 % (0-5); Platelet Count 250 K/mm3 (150-450); RBC Distribution Width CV 11.9 % (11.6-14.6); RBC Distribution Width SD 38.4 fl (35.1-43.9); White Blood Count 6.7 K/mm3 (4.4-11.0)
[2018-12-01 12:54] LABS: Vitamin D,25 Hydroxy 34.7 ng/mL (29.95-100.01)
[2018-12-01 13:09] LABS: AST(SGOT) 26 U/L (15-37); Alanine Aminotransfer ALT/SGPT 39 U/L (13-56); Albumin, Serum 4.2 g/dL (3.2-5.0); Alkaline Phosphatase 89 U/L (45-117); Anion Gap 9 (5-15); BUN 17 mg/dL (7-18); BUN/Creat Ratio 14.3 RATIO (10-20); Calcium,Total 9.6 mg/dL (8.5-10.1); Chloride 97 mmol/L (98-107); Creatinine, Serum 1.19 mg/dL (0.55-1.02); EST Glomerular Filtration Rate 47 mL/min (>60); Est Glom Filt Rate - Afr Amer 57 mL/min (>60); Globulin 4.1 g/dL (2.2-4.2); Glucose 283 mg/dL (74-106); Potassium 3.7 mmol/L (3.5-5.1); Protein, Total 8.3 g/dL (6.4-8.2); Sodium Level 132 mmol/L (136-145); Thyroid Stim Hormone (TSH) 2.22 uIU/mL (0.358-3.74)
== END ==
PROVIDERS: Family Provider Family Medicine Geriatric Medicine; PCP Family Medicine Geriatric Medicine; Visit Provider Family Medicine Geriatric Medicine
DX: E11.9 Type 2 diabetes mellitus without complications (principal); E55.9 Vitamin D deficiency, unspecified; I10 Essential (primary) hypertension
CPT/HCPCS: 36415; 80053; 82306; 84443; 85025

== ENCOUNTER → 2019-03-28 11:09 | Outpatient (CLI) | payer MEDICARE, OTHER, SELFPAY ==
[2019-03-28 11:31] LABS: Absolute Lymphocyte Count 1.72 X10^3/uL (0.83-4.51); Absolute Neutrophil Count 6.8 X10^3/uL (2.0-7.7); Basophil# 0.07 X10^3/uL; Basophil% 0.7 % (0-1); Eosinophil# 0.13 X10^3/uL; Eosinophils% 1.4 % (0-5); Hematocrit 38.6 % (37-47); Lymphocyte # 1.72 X10^3/ul (4.0); Mean Corp Hgb Conc 33.7 g/dL (32-36); Mean Corpuscular Hgb 30.1 pg (27.0-32.0); Mean Corpuscular Volume 89.4 fL (81-99); Mean Platelet Vol. 9.3 fl (6.2-12.0); Monocyte% 8.4 % (0-10); NRBC Flagged by Analyzer 0 % (0-5); Neutrophil # 6.76 X10^3/uL (2.7-7.7); Platelet Count 315 K/mm3 (150-450); RBC Distribution Width CV 11.8 % (11.6-14.6); RBC Distribution Width SD 38.2 fl (35.1-43.9); Red Blood Count 4.32 M/mm3 (4.2-5.4); White Blood Count 9.5 K/mm3 (4.4-11.0)
[2019-03-28 11:46] LABS: ALB/GLOB Ratio 0.8 RATIO (0.9-2.4); AST(SGOT) 8 U/L (15-37); Alanine Aminotransfer ALT/SGPT 14 U/L (13-56); Albumin, Serum 3.6 g/dL (3.2-5.0); Alkaline Phosphatase 85 U/L (45-117); Anion Gap 6 (5-15); BUN 30 mg/dL (7-18); BUN/Creat Ratio 19.7 RATIO (10-20); Calcium,Total 8.6 mg/dL (8.5-10.1); Chloride 105 mmol/L (98-107); Creatinine, Serum 1.52 mg/dL (0.55-1.02); EST Glomerular Filtration Rate 35 mL/min (>60); Est Glom Filt Rate - Afr Amer 43 mL/min (>60); Globulin 4.5 g/dL (2.2-4.2); Glucose 233 mg/dL (74-106); Potassium 3.5 mmol/L (3.5-5.1); Protein, Total 8.1 g/dL (6.4-8.2); Sodium Level 135 mmol/L (136-145)
== END ==
PROVIDERS: Family Provider Family Medicine Geriatric Medicine; PCP Family Medicine Geriatric Medicine; Visit Provider Family Medicine Geriatric Medicine
DX: N39.0 Urinary tract infection, site not specified (principal); R10.9 Unspecified abdominal pain
CPT/HCPCS: 36415; 80053; 85025; 87086

== ENCOUNTER → 2019-03-28 13:42 | Outpatient (CLI) | payer MEDICARE, OTHER, SELFPAY ==
--- NOTE | 2019-03-28 13:46 | CT_ITS ---
STUDY: CT ABDOMEN AND PELVIS WITH CONTRAST REASON FOR EXAM: Female, 74 years old. Diffuse abdominal pain. RADIATION DOSAGE (If Supplied By Facility): CTDIvol = ( 10.86 ) mGy, DLP = ( 419.43 ) mGycm TECHNIQUE: Transaxial images were obtained from the dome of the diaphragm to the symphysis pubis with oral contrast. IV/Oral Isovue 300 100CC was administered. Sagittal and coronal images were reconstructed. Individualized dose optimization techniques were used for this CT. COMPARISON: Comparison is made with prior study dated November 30, 2018. FINDINGS: Minimal linear scarring at the left lung base. There is a 7.2 mm noncalcified nodule in the left lower lobe. This abuts the pleural surface. Stable 5 mm noncalcified nodule in the posterior medial segment of the right lower lobe. Coronary artery calcification. Normal liver. Mildly distended gallbladder. Normal spleen. Normal pancreas. Normal bilateral adrenal glands. Normal right kidney. Normal left kidney. Retroaortic left renal vein. There is a small hiatal hernia. Fluid-filled small bowel loops without obstruction. There are multiple colonic diverticula consistent with diverticulosis. There is non-visualization of the appendix. Normal abdominal aorta. Normal inferior vena cava. Normal retroperitoneum. Normal urinary bladder. There is absence of the uterus consistent with a prior hysterectomy. There is a small umbilical hernia containing fat. There are degenerative changes of the visualized lumbar spine. CT/Abdomen/Pelvis WITH Contrast IMPRESSION: Fluid-filled small bowel loops without obstruction. Electronically Signed: Howard Campos, at 15:45 EST , Service support ,
== END ==
PROVIDERS: Family Provider Family Medicine Geriatric Medicine; PCP Family Medicine Geriatric Medicine; Referring Provider Family Medicine Geriatric Medicine; Visit Provider Family Medicine Geriatric Medicine
DX: N39.0 Urinary tract infection, site not specified (principal); R10.9 Unspecified abdominal pain
CPT/HCPCS: 36415; 74177; 80053; 85025; 87086; 87088; Q9967

== ENCOUNTER → 2019-03-29 10:11 | Outpatient (CLI) | payer MEDICARE, SELFPAY | LOC: POLAB3 10:14 → LABSPEC 10:18 | PROVIDERS: Family Provider Family Medicine Geriatric Medicine; PCP Family Medicine Geriatric Medicine; Visit Provider Family Medicine Geriatric Medicine | DX: R19.7 Diarrhea, unspecified (principal) | CPT/HCPCS: 82274; 83630; 87177; 87209; 87493; 87506 ==

== ENCOUNTER → 2019-04-05 11:56 | Outpatient (CLI) | payer MEDICARE, OTHER, SELFPAY ==
[2019-04-05 12:31] LABS: Absolute Lymphocyte Count 1.32 X10^3/uL (0.83-4.51); Absolute Neutrophil Count 6.5 X10^3/uL (2.0-7.7); Basophil# 0.03 X10^3/uL; Basophil% 0.4 % (0-1); Eosinophil# 0.12 X10^3/uL; Eosinophils% 1.4 % (0-5); Lymphocyte # 1.32 X10^3/ul (4.0); Lymphocyte % 15.5 % (19-41); Mean Corp Hgb Conc 33.3 g/dL (32-36); Mean Corpuscular Hgb 30.2 pg (27.0-32.0); Mean Corpuscular Volume 90.7 fL (81-99); Mean Platelet Vol. 9.7 fl (6.2-12.0); Monocyte# 0.48 X10^3/uL; Monocyte% 5.6 % (0-10); NRBC Flagged by Analyzer 0 % (0-5); Neutrophil # 6.54 X10^3/uL (2.7-7.7); Neutrophil % 76.9 % (47-70); Platelet Count 249 K/mm3 (150-450); RBC Distribution Width CV 12.2 % (11.6-14.6); RBC Distribution Width SD 39.8 fl (35.1-43.9); Red Blood Count 3.64 M/mm3 (4.2-5.4); White Blood Count 8.5 K/mm3 (4.4-11.0)
[2019-04-05 12:43] LABS: ALB/GLOB Ratio 0.9 RATIO (0.9-2.4); AST(SGOT) 14 U/L (15-37); Alanine Aminotransfer ALT/SGPT 15 U/L (13-56); Albumin, Serum 3.2 g/dL (3.2-5.0); Alkaline Phosphatase 79 U/L (45-117); Anion Gap 7 (5-15); BUN 12 mg/dL (7-18); BUN/Creat Ratio 11.1 RATIO (10-20); Calcium,Total 8.4 mg/dL (8.5-10.1); Chloride 106 mmol/L (98-107); Creatinine, Serum 1.08 mg/dL (0.55-1.02); EST Glomerular Filtration Rate 53 mL/min (>60); Est Glom Filt Rate - Afr Amer 64 mL/min (>60); Globulin 3.7 g/dL (2.2-4.2); Glucose 178 mg/dL (74-106); Potassium 3.7 mmol/L (3.5-5.1); Protein, Total 6.9 g/dL (6.4-8.2); Sodium Level 138 mmol/L (136-145)
--- NOTE | 2019-04-05 13:01 | CT_ITS ---
STUDY: CT ABDOMEN AND PELVIS WITH CONTRAST REASON FOR EXAM: Female, 74 years old. One week history of diffuse abdominal pain and diarrhea. RADIATION DOSAGE (If Supplied By Facility): CTDIvol = ( 10.30 ) mGy, DLP = ( 513.93 ) mGycm TECHNIQUE: Transaxial images were obtained from the dome of the diaphragm to the symphysis pubis with oral contrast. IV/Oral Isovue 370 100CC was administered. Sagittal and coronal images were reconstructed. Individualized dose optimization techniques were used for this CT. COMPARISON: Comparison is made with prior examination dated March 28, 2019. FINDINGS: Stable 8.5 mm noncalcified nodule in the posterior left lower lobe abutting the pleural surface. Stable mild scarring at the lung bases. The visualized portions of the heart are within normal limits. Normal liver. Mildly thickened gallbladder wall. Normal spleen. Normal pancreas. Normal bilateral adrenal glands. Normal right kidney. Normal left kidney. Left retroaortic renal vein. There is a small hiatal hernia. Normal small intestine. There are multiple colonic diverticula consistent with diverticulosis. The appendix is visualized and appears normal. Normal abdominal aorta. Normal inferior vena cava. Normal retroperitoneum. Normal urinary bladder. There is absence of the uterus consistent with a prior hysterectomy. There is a small umbilical hernia containing fat. There are diffuse degenerative changes of the visualized lumbar spine. CT/Abdomen/Pelvis WITH Contrast IMPRESSION: Sigmoid diverticulosis. Stable pleural-based nodule in the left lower lobe. Electronically Signed: Howard Campos, at 15:30 EST , Service support ,
== END ==
LOC: POLAB3 11:56 → CT 13:00
PROVIDERS: Family Provider Family Medicine Geriatric Medicine; PCP Family Medicine Geriatric Medicine; Referring Provider Family Medicine Geriatric Medicine; Visit Provider Family Medicine Geriatric Medicine
DX: K57.30 Diverticulosis of large intestine without perforation or abscess without bleeding (principal); R91.1 Solitary pulmonary nodule; R10.9 Unspecified abdominal pain; I10 Essential (primary) hypertension
CPT/HCPCS: 36415; 74177; 80053; 84443; 85025; Q9967

== ENCOUNTER → 2019-06-12 06:21 | Outpatient (CLI) | payer MEDICARE, OTHER, SELFPAY ==
[2019-05-31 10:05] VITALS: BMI 23.8
--- NOTE | 2019-06-12 13:21 | STRESSREP ---
Stress Test Report Exercise myocardial perfusion stress test. 74-year-old lady with a history of hypertension, and coronary artery calcification. Stress protocol: Resting EKG demonstrates normal sinus rhythm with a rate of 64 bpm normal intervals are noted. The patient exercised according to regular Jorje protocol for total duration of 4 minutes and 30 seconds the maximum heart rate attained was 131 bpm which was 90% of maximum predicted heart rate the maximum workload was 6.4 metabolic equivalents. The patient maintained sinus rhythm throughout the recording. At rest nonspecific ST-T wave changes were noted at peak exercise upsloping ST changes only were noted with no meet the criteria for ischemia. No chest pain was noted the test was terminated due to shortness of breath. The resting blood pressure was 122/84 with a peak blood pressure 142/84 mmHg. No clinical angina was noted. Myocardial perfusion protocol. 11.8 mCi of technetium 99m sestamibi was injected at rest. The patient exercised for 4-1/2 minutes and at peak exercise on the Jorje protocol 32.7 mCi of technetium 99m sestamibi was injected stress images were obtained stress and rest images were reconstructed and compared in the short axis vertical long horizontal long axis. Gated images were also obtained per Perfusion SPECT analysis: Review of the stress images demonstrate no evidence of ischemia noted at the workload attained. The resting images also demonstrate normal perfusion in all areas of the myocardium. No previous infarct is noted no obvious ischemia is noted. Conclusion: Normal exercise myocardial perfusion stress test at a moderate workload. No clinical angina noted. Though the above stress test demonstrates no obvious ischemia and demonstrates a good prognosis, at the workload attained the presence of obstructive coronary disease cannot be completely excluded.
== END ==
PROVIDERS: PCP Family Medicine Geriatric Medicine; Referring Provider Internal Medicine Cardiovascular Disease; Visit Provider Internal Medicine Cardiovascular Disease
DX: R93.89 Abnormal findings on diagnostic imaging of other specified body structures (principal); I25.10 Atherosclerotic heart disease of native coronary artery without angina pectoris
CPT/HCPCS: 78452; 93017; A9500; A4216

== ENCOUNTER → 2024-08-02 | Outpatient (REF) | payer MEDICARE, SELFPAY ==
[2024-08-02 08:42] LABS: Hemoglobin A1c 8.2 % (<=5.6)
== END ==
LOC: OLS.SW 05:00
PROVIDERS: PCP Family Medicine Geriatric Medicine; Visit Provider Internal Medicine
DX: E11.9 Type 2 diabetes mellitus without complications (principal)
CPT/HCPCS: 36415; 83036

== ENCOUNTER → 2024-09-15 | Outpatient (REF) | payer MEDICARE, SELFPAY ==
[2024-09-15 07:51] LABS: Vitamin D,25 Hydroxy 26.5 ng/mL (30-100)
== END ==
LOC: OLS.SW 05:00
PROVIDERS: PCP Family Medicine Geriatric Medicine; Visit Provider Internal Medicine
DX: E55.9 Vitamin D deficiency, unspecified (principal)
CPT/HCPCS: 36415; 82306

== ENCOUNTER → 2025-01-30 04:00 | Outpatient (REF) | payer MEDICARE, SELFPAY ==
[2025-01-30 08:14] LABS: Hematocrit 28.8 % (37-47); Hemoglobin 9.9 g/dL (12.0-15.0); Mean Corp Hgb Conc 34.4 g/dL (32-36); Mean Corpuscular Volume 87.3 fL (81-99); Mean Platelet Vol. 9.8 fl (6.2-12.0); Platelet Count 264 K/mm3 (150-450); RBC Distribution Width CV 12.4 % (11.6-14.6); RBC Distribution Width SD 39.8 fl (35.1-43.9); Red Blood Count 3.30 M/mm3 (4.2-5.4); White Blood Count 7.7 K/mm3 (4.4-11.0)
[2025-01-30 08:43] LABS: Anion Gap 12 (5-15); BUN 34 mg/dL (4-19); BUN/Creat Ratio 34.6 RATIO (10-20); Calcium,Total 9.1 mg/dL (7.6-11.0); Carbon Dioxide 23.0 mmol/L (21.0-32.0); Chloride 98 mmol/L (98-108); Glucose 144 mg/dL (70-99); Potassium 4.3 mmol/L (3.3-5.1); Vitamin D,25 Hydroxy 39.1 ng/mL (30-100)
== END ==
LOC: OLS.SW 04:00
PROVIDERS: PCP Family Medicine Geriatric Medicine; Referring Provider Family Medicine; Visit Provider Family Medicine
DX: E11.9 Type 2 diabetes mellitus without complications (principal); F03.90 Unspecified dementia, unspecified severity, without behavioral disturbance, psychotic disturbance, mood disturbance, and anxiety; I10 Essential (primary) hypertension
CPT/HCPCS: 36415; 80048; 82306; 83036; 84443; 85027

== ENCOUNTER → 2025-03-06 | Outpatient (REF) | payer MEDICARE, SELFPAY ==
[2025-03-06 07:46] LABS: Hematocrit 29.7 % (37-47); Hemoglobin 10.2 g/dL (12.0-15.0); Mean Corp Hgb Conc 34.3 g/dL (32-36); Mean Corpuscular Volume 85.1 fL (81-99); Mean Platelet Vol. 9.5 fl (6.2-12.0); Platelet Count 284 K/mm3 (150-450); RBC Distribution Width CV 12.1 % (11.6-14.6); RBC Distribution Width SD 37.3 fl (35.1-43.9); Red Blood Count 3.49 M/mm3 (4.2-5.4); White Blood Count 9.3 K/mm3 (4.4-11.0)
[2025-03-06 08:01] LABS: Anion Gap 11 (5-15); BUN 37 mg/dL (4-19); BUN/Creat Ratio 39.6 RATIO (10-20); Calcium,Total 9.6 mg/dL (7.6-11.0); Carbon Dioxide 23.2 mmol/L (21.0-32.0); Chloride 100 mmol/L (98-108); Glucose 95 mg/dL (70-99); Potassium 4.4 mmol/L (3.3-5.1)
== END ==
LOC: OLS.SW 04:00
PROVIDERS: PCP Family Medicine Geriatric Medicine; Referring Provider Family Medicine; Visit Provider Family Medicine
DX: E11.65 Type 2 diabetes mellitus with hyperglycemia (principal); R62.7 Adult failure to thrive; Z79.4 Long term (current) use of insulin
CPT/HCPCS: 36415; 80048; 85027